=== PATIENT | female | born 1995 | race Caucasian/White ===

== ENCOUNTER 2024-09-27 09:09 | Outpatient (CLI) | payer BC, SELFPAY ==
[2024-09-28 17:51] LABS: HPV Source Cervix
[2024-10-01 13:11] LABS: Pap Test Digital Imaging Done
== END 2024-09-27 09:10 | disposition home or self-care (01) ==
PROVIDERS: Visit Provider Registered Nurse
DX: Z12.4 Encounter for screening for malignant neoplasm of cervix (principal); Z11.51 Encounter for screening for human papillomavirus (HPV)
CPT/HCPCS: 87624; 87625; 88141; 88142; 88175

== ENCOUNTER 2024-10-05 07:56 | Outpatient (CLI) | payer BC, SELFPAY ==
--- NOTE | 2024-10-05 08:15 | CRLHL7_ITS ---
For Patients: As a result of the Century Cures Act, medical imaging exams and procedure reports are released immediately into your electronic medical record. You may view this report before your referring provider. If you have questions, please contact your health care provider. LEFT BREAST ULTRASOUND CLINICAL HISTORY: LEFT breast lump. COMPARISON: None. TECHNIQUE: Real-time ultrasound imaging of LEFT breast with imaging documentation. Scanning was performed by both the technologist and the radiologist. FINDINGS: Targeted sonogram LEFT breast 12 o`clock performed in the area of concern. Normal dense fibroglandular tissue is present. No fibrocystic change. No suspicious mass. IMPRESSION: No suspicious findings. No evidence of malignancy. RECOMMENDATIONS: Clinical follow-up. Results and recommendations were discussed with the patient at the time of the exam. A lay language report of this examination will be provided to the patient. BI-RADS Category 2: Benign Dictated by Carter Guerra MD @ 10/05/2024 8:48:02 AM jj/Dictated by: Carter Guerra MD @ 10/05/2024 8:48:00 AM (Electronically Signed)
== END 2024-10-05 07:57 | disposition home or self-care (01) ==
LOC: US 07:56
PROVIDERS: Visit Provider Registered Nurse
DX: N63.20 Unspecified lump in the left breast, unspecified quadrant (principal)
CPT/HCPCS: 76642

== ENCOUNTER 2024-10-30 13:34 | Outpatient (CLI) | payer BC, SELFPAY ==
--- NOTE | 2024-10-30 14:00 | CRLHL7_ITS ---
For Patients: As a result of the Cures Act, medical imaging exams and procedure reports are released immediately into your electronic medical record. You may view this report before your referring provider. If you have questions, please contact your health care provider. OB ULTRASOUND INDICATION: Dating and viability. TECHNIQUE: Real time grayscale imaging of the fetus was performed. Transvaginal. Transvaginal imaging performed to better demonstrate the endometrium and ovaries. LMP: 09/07/2024. GOPAL by LMP: 06/14/2025. GA: 7 w, 4 d. Previous US: No. CRL: 0.9 cm. 6 w 6 d. GOPAL: 06/19/2025. FHR: 121 BPM. Gestational sac: 2.4 cm. Appears within normal limits. Yolk sac: 2.0 mm. Appears within normal limits. Right ovary: 2.7 x 2.2 x 2.9 cm. CL. Left ovary: 2.8 x 1.7 x 2.3 cm. IMPRESSION: 1. Single living intrauterine measures 6 weeks 6 days and sonographic due date 06/19/2025. 2. Corpus luteal cyst right ovary measures 2.3 x 1.8 x 2.4 cm. 3. Simple left paraovarian cyst measures 1.4 x 0.6 x 0.8 cm. Carter Guerra M.D. Diagnostic Radiologist [email or web address]/Dictated by: Carter Guerra MD @ 10/30/2024 2:37:00 PM (Electronically Signed)
== END 2024-10-30 13:35 | disposition home or self-care (01) ==
LOC: US 13:35
PROVIDERS: Visit Provider Physician Assistant
DX: O34.81 Maternal care for other abnormalities of pelvic organs, first trimester (principal); N83.11 Corpus luteum cyst of right ovary; Z3A.01 Less than 8 weeks gestation of pregnancy
CPT/HCPCS: 76817; 83021; 86703; 86706; 86803; 86850; 86900; 86901; 87086; 87340; 87491; 87591

== ENCOUNTER 2024-10-30 14:47 | Outpatient (CLI) | payer BC, SELFPAY ==
[2024-10-30 23:04] LABS: Chlamydia DNA Amplified* NOT DETECTED (No Detected); GC DNA Amplified* NOT DETECTED (No Detected)
== END 2024-10-30 14:48 | disposition home or self-care (01) ==
PROVIDERS: Visit Provider Physician Assistant
DX: Z34.91 Encounter for supervision of normal pregnancy, unspecified, first trimester (principal)
CPT/HCPCS: 83020; 83021; 85660; 86592; 86703; 86704; 86706; 86762; 86787; 86803; 86850; 86900; 86901; 87086; 87340; 87491; 87591

== ENCOUNTER 2024-12-08 13:55 | Observation (INO) | payer BC, SELFPAY ==
--- OUTSIDE RECORDS SUMMARY | 2024-11-27 04:50 | XMS_ITS | Continuity of Care Document ---
Author Organization [facility] Address [address] [address] [place] [address] Phone Care Team Providers Care Termite Control Representative Name Role Phone Lozano DO, Jayme Unavailable Unavailable Allergies, Adverse Reactions, Alerts Substance Reaction Status Criticality No Known Allergies Active No Inform ation Medications Medication Instructions Dosage Effective Dates (start - stop) Status Comments VITAMINS (unknown strength) take 1 tablet by oral route every day Not Available - Active amitriptyline 25 mg tablet take 1 to 2 tablet by oral route every day at bedtime for cyclic vomiting syndrome - Active promethazine 6.25 mg/5 mL oral syrup take 10 to 20 ml four times daily as needed for nausea/vomiting - Active PEPCID (unknown strength) take 1 tablet by oral route every day Not Available - Active cyproheptadine 4 mg tablet take 1 tablet by oral route 2 times every day 4 MG - Active triamcinolone acetonide 0.1 % topical cream apply by topical route 2- 3 times every day a thin layer to the affected area(s) Not Available - Active amitriptyline 25 mg tablet take 1 to 2 tablet by oral route every day at bedtime for cyclic vomiting syndrome - No Longer Active amitriptyline 25 mg tablet take 1 tablet by oral route every day at bedtime 25 MG - No Longer Active metoclopramide 5 mg/5 mL oral solution take 10 milliliter by oral route 4 times every day 30 minutes before meals and at bedtime 10 MG - No Longer Active Altavera (28) 0.15 mg-0.03 mg tablet take 1 tablet by oral route every day 1.00 tablet - No Longer Active Procedures Procedure Date Established Level 4 Moderate Offic/outpt E&m Estab Low-mod Established Level 5 Established Level 3 Established Level 3 Established Level 3 Established Level 3 Ugi Endo; W/us Guid Asp/bx Ugi Endo; W/bx 1/mx Established Level 4 Offic/outpt E&m Estab Mod-hi 2 Ugi Endo; W/bx 1/mx Level Iv-surg Path Gross/micro Routine Serum Collection Ag-immunoassay; Hep B Surface Gg; Iga, Igd, Igg, Igm, Ea Prothrombin Time Hepatitis A Antibody; Igg & Ig Hep B Core Antibody Hepatitis C Antibody; Ferritin Hepatic Function Panel Iron Iron Binding Capacity Offic/outpt E&m Estab Mod-hi 2 Routine Serum Collection Hepatic Function Panel Lipase Offic Cons New/estab Mod Advance Directives Directive Yes / No Effective Date File Name No Information Encounters Encounter Description Practice Location Reason(s) For Visit Diagnoses Date Provider Providers Copied on Encounter Established Level 4 Moderate [facility] [address] [address], [place], [id number], [place] tel:[phone] [facility] GI Symptoms or Concerns (chief complaint) Cyclic vomiting [id number] weeks gestation of 5 Blake Uribe. [address] [facility], [address], [id number], [place]. tel:[phone] Referring Provider: Referral Self, USE FOR SELF REFERRALS. [facility], [address] [address], [place], [id number], [place] tel:[phone] [facility] No Information 4 Ursula Morin. [address] [facility] [address], [place], [id number], [place]. tel:[phone] Offic/outpt E&m Estab Low-mod [facility], [address] [address], [place], [id number], [place] tel:[phone] [facility] GI Symptoms or Concerns (chief complaint) Cyclic vomiting syndromeNause a and vomiting, intractabilit y of vomiting not specified, unspecified vomiting type 3 Ursula Morin. [address] [facility] [address], [place], [id number], [place]. tel:[phone] Referring Provider: Referral Self, USE FOR SELF REFERRALS. [facility], [address] [address], [place], [id number], [place] tel:[phone] [facility] Cyclic vomiting syndrome 0 3 Luis Felipe Valadez. [address] [place], [place], [id number], [place]. tel:[phone] Referring Provider: Listed Not. Established Level 5 [facility], [address] [address], [place], [id number], [place] tel:[phone] [facility] GI Symptoms or Concerns (chief complaint) Cyclic vomiting syndrome 3 Luis Felipe Valadez. [address] [place], [place], [id number], [place]. tel:[phone] Referring Provider: Jodie Guzman CNP M, [address] [place], [address]. tel:[phone] [facility], [address] [address], [place], [place], [id number], [place] tel:[phone] [facility] GI Symptoms or Concerns (chief complaint) No Information 3 Luis Felipe Valadez. [address] [place], [place], [id number], [place]. tel:[phone] [facility], [address] [address], [place], [id number], [place] tel:[phone] [facility] No Information 3 Andreia Valle. [address], [id number], [place]. tel:[phone] Established Level 3 [facility], [address] [address], [place], [id number], [place] tel:[phone] [facility] GI Symptoms or Concerns (chief complaint) Cyclic vomiting syndrome 3 Andreia Valle. [address], [id number], [place]. tel:[phone] Referring Provider: Referral Self, USE FOR SELF REFERRALS. [facility], [address] [address], [place], [id number], [place] tel:[phone] [facility] No Information 3 Andreia Valle. [address] [facility] [address], [place], [id number], [place]. tel:[phone] Established Level 3 [facility], [address] [address], [place], [id number], [place] tel:[phone] [facility] GI Symptoms or Concerns (chief complaint) Cyclic vomiting syndrome 2 Macario Bonilla. [address] [facility], [facility] [address], [place], [id number], [place]. tel:[phone] Referring Provider: Benitez ORTEGA, [address] [place] [address], [address]. tel:[phone] [facility], [address] [address], [place], [id number], [place] tel:[phone] [facility] No Information 2 Edenilson Rob. [address] [facility], [facility] [address], [place], [id number], [place]. [phone] Established Level 3 [facility], [address] [address], [place], [id number], [place] tel:[phone] [facility] GI Symptoms or Concerns (chief complaint) Cyclic vomiting syndromeNause a and vomiting, intractabilit y of vomiting not specified, unspecified vomiting typeAbnormal LFTsHistory of migraine headaches No Information Referring Provider: Referral Self, USE FOR SELF REFERRALS. [facility], [address] [address], [place], [id number], [place] tel:[phone] No Information No Information Established Level 3 [facility], [address] [address], [place], [id number], [place] tel:[phone] [facility] GI Symptoms or Concerns (chief complaint) Cyclic vomiting syndromeNause a and vomiting, intractabilit y of vomiting not specified, unspecified vomiting typeAbnormal LFTsAbnormal weight lossHistory of migraine headaches No Information Referring Provider: Referral Self, USE FOR SELF REFERRALS. [facility], [address] [address], [place], [id number], [place] tel:[phone] [facility] Nonspecific reactive hepatitis Andrew Seals. [address] [facility] [address], [place], [id number], [place]. tel:[phone] [facility], [address] [address], [place], [id number], [place] tel:[phone] [facility] No Information 1 Dominik De Luna. [address] [place] [address], [address], [id number], [place]. tel:[phone] Referring Provider: Calixto Brambila, [address] [place] [address], [address]. [phone] [facility], [address] [address], [place], [id number], [place] tel:[phone] [facility] Abnormal LFTsNausea and vomiting, intractabilit y of vomiting not specified, unspecified vomiting type 1 Andrew Seals. [address] [place] [address], [id number], [place]. tel:[phone] Established Level 4 [facility], [address] [address], [place], [id number], [place] tel:[phone] [facility] GI Symptoms or Concerns (chief complaint) Abnormal LFTsNausea and vomiting, intractabilit y of vomiting not specified, unspecified vomiting typeAbnormal weight loss 0 1 No Information Referring Provider: Referral Self, USE FOR SELF REFERRALS. [facility], [address] [address], [place], [id number], [place] tel:[phone] [facility] Abnormal LFTsNausea and vomiting, intractabilit y of vomiting not specified, unspecified vomiting type 1 Andrew Seals. [address] [place] [address], [id number], [place]. tel:[phone] Offic/outpt E&m Estab Mod-hi 2 [facility], [address] [address], [place], [id number], [place] tel:[phone] [facility] GI Symptoms or Concerns (chief complaint) Nausea with vomiting, unspecifiedAb normal weight loss 0 1 Ortega Rosen. [address] [place] [address], [id number], [place]. tel:[phone] Referring Provider: Referral Self, USE FOR SELF REFERRALS. [facility], [address] [address], [place], [id number], [place] tel:[phone] [facility] Nausea with vomiting, unspecifiedWe ight lossAbnormal weight lossDisease of stomach and duodenum, unspecifiedNa usea with vomiting, unspecifiedAb normal weight loss 1 Yoseph Harris. [address] [place] [address], [id number], [place]. tel:[phone] Referring Provider: Referral Self, USE FOR SELF REFERRALS. [facility], [address] [address], [place], [id number], [place] tel:[phone] [facility] Nausea and vomiting, intractabilit y of vomiting not specified, unspecified vomiting type 1 Andrew Seals. [address] [place] [address], [id number], [place]. tel:[phone] [facility], [address] [address], [place], [id number], [place] tel:[phone] [facility] Abnormal results of liver function studies 1 Andrew Seals. [address] [place] [address], [id number], [place]. tel:[phone] Referring Provider: Referral Self, USE FOR SELF REFERRALS. [facility] [place], [address] [address], [place], [id number], [place] tel:[phone] [facility] Abnormal LFTsElevated lipase 1 Andrew Seals. [address] [place] [address], [id number], [place]. tel:[phone] Offic/outpt E&m Estab Mod-hi 2 [facility], [address] [address], [place], [id number], [place] tel:[phone] [facility] GI Symptoms or Concerns (chief complaint) Nausea and vomiting, intractabilit y of vomiting not specified, unspecified vomiting typeLeft upper quadrant painDiarrhea, unspecified typeAbnormal LFTs 1 Andrew Seals. [address] [place] [address], [address], [id number], [place]. tel:[phone] Referring Provider: Referral Self, USE FOR SELF REFERRALS. [facility], [address] [address], [place], [place], [id number], [place] tel:[phone] [facility] No Information 1 Yuri Mauricio. [address] [facility], [facility] [address], [place], [place], [id number], [place]. tel:[phone] Offic Cons New/estab Mod [facility], [address] [address], [place], [place], [id number], [place] tel:[phone] [facility] GI Symptoms or Concerns (chief complaint) Non-intractab le cyclical vomiting with nausea 8 Macario Bonilla. [address] [place] [address], [address], [id number], [place]. tel:[phone] Referring Provider: Benitez ORTEGA, [address] [place] [address], [address]. tel:[phone] Family History Family Member Type Diagnosis Age At Onset Father Problem (finding) Alive and well Mother Problem (finding) Alive and well Sister Problem (finding) Alive and well Immunizations Vaccine Date Status Comments tetanus toxoid, reduced diphtheria toxoid, and acellular pertussis vaccine, adsorbed administered Note: [facility] b i-directional interface ; Source: Other Registry SARS-COV-2 (COVID-19) vaccin e, mRNA, spike protein, LNP, preservative free, 30 mcg/0.3mL dose administered Note: [facility] bi-direct ional interface ; Source: Other Registry SARS-COV-2 (COVID-19) vaccin e, mRNA, spike protein, LNP, preservative free, 30 mcg/0.3mL dose administered Note: [facility] bi-direct ional interface ; Source: Other Registry meningococcal polysaccharide (groups A, C, Y and W-135) diphtheria toxoid conjugate vaccine (MCV4P) administered Note: [facility] bi-direct ional interface ; Source: Other Registry human papilloma virus vaccin e, quadrivalent administered Note: [facility] bi-direct ional interface ; Source: Other Registry human papilloma virus vaccin e, quadrivalent administered Note: [facility] bi-direct ional interface ; Source: Other Registry tetanus toxoid, reduced diphtheria toxoid, and acellular pertussis vaccine, adsorbed administered Note: [facility] b i-directional interface ; Source: Other Registry human papilloma virus vaccin e, quadrivalent administered Note: [facility] bi-direct ional interface ; Source: Other Registry Havrix pediatric administered Note: [facility] bi-directional interface ; Source: Other Registry Influenza, seasonal, injectable administe red Note: [facility] bi- directional interface ; Source: Other Registry varicella virus vaccine administered Note : [facility] bi-directional interface ; Source: Other Registry Influenza, seasonal, injectable administe red Note: [facility] bi- directional interface ; Source: Other Registry Influenza, seasonal, injectable administe red Note: [facility] bi- directional interface ; Source: Other Registry poliovirus vaccine, inactivated administe red Note: [facility] bi- directional interface ; Source: Other Registry measles, mumps and rubella v irus vaccine administered Note: [facility] bi-direct ional interface ; Source: Other Registry diphtheria, tetanus toxoids and acellular pertussis vaccine administered Note: [facility] b i-directional interface ; Source: Other Registry Pneumovax administered Note: [facility] bi-d irectional interface ; Source: Other Registry measles, mumps and rubella v irus vaccine administered Note: [facility] bi-direct ional interface ; Source: Other Registry Haemophilus influenzae type b vaccine, PRP-T conjugate administered Note: [facility] bi-d irectional interface ; Source: Other Registry diphtheria, tetanus toxoids and acellular pertussis vaccine administered Note: [facility] b i-directional interface ; Source: Other Registry varicella virus vaccine administered Note : [facility] bi-directional interface ; Source: Other Registry poliovirus vaccine, inactivated administe red Note: [facility] bi- directional interface ; Source: Other Registry Haemophilus influenzae type b vaccine, PRP-T conjugate administered Note: [facility] bi-d irectional interface ; Source: Other Registry hepatitis B vaccine, unspeci fied formulation administered Note: [facility] bi-direct ional interface ; Source: Other Registry diphtheria, tetanus toxoids and acellular pertussis vaccine administered Note: [facility] b i-directional interface ; Source: Other Registry poliovirus vaccine, inactivated administe red Note: [facility] bi- directional interface ; Source: Other Registry Haemophilus influenzae type b vaccine, PRP-T conjugate administered Note: [facility] bi-d irectional interface ; Source: Other Registry diphtheria, tetanus toxoids and acellular pertussis vaccine administered Note: [facility] b i-directional interface ; Source: Other Registry poliovirus vaccine, inactivated administe red Note: [facility] bi- directional interface ; Source: Other Registry Haemophilus influenzae type b vaccine, PRP-T conjugate administered Note: [facility] bi-d irectional interface ; Source: Other Registry hepatitis B vaccine, unspeci fied formulation administered Note: [facility] bi-direct ional interface ; Source: Other Registry diphtheria, tetanus toxoids and acellular pertussis vaccine administered Note: [facility] b i-directional interface ; Source: Other Registry Energix Pediatric administered Note: [facility] bi-directional interface ; Source: Other Registry Payers Payer name Insurance type Covered green party ID Authoriza tion(s) [facility] [id number] Social History Type Description Quantity Date Captured Comments Alcohol Use Details Unknown Caffeine Use Details Unknown Tobacco Use Status No Information Smoking Status undefined Sex Female Vital Signs Date / Time: Height Weight BMI Pulse Rate Blood Pressure Temperature Respiratory Rate Body Surface Area Head Circumference Head Circ. Percentile Wt./David. Percentile BMI percentile Pulse Ox Inhaled Ox 9:51 AM 61.00 in 82.100 kg (181.00 lbs) 34.2 0 kg/m marcial (2) Chief Complaint And Reason For Visit From encounter dated '11/27/2024 09:50'. GI Symptoms or Concerns (chief complaint). Description: This was a virtual health appointment whichthe patient agreed to prior to initiation of discussion. Patient was present by herself during the appointment. Total time saw the patient including chart review, discussion, coordination of care was16 minutes.This is a pleasant 29-year-old female who is an established patient returning for follow-up of cyclic vomiting syndrome and . Patient was last seen in January 2023. She has done quite well since that appointment has been maintained on amitriptyline 25 mg once daily to help manage her cyclic vomiting syndrome. She reports with this medicine she does much better than she does without it. She still may experience an episode once every couple years where she will have profound nausea and vomiting and has rather violent symptoms that can last 2 weeks up to 2 months. During that time she can have severe dehydration, mall nutrition, and weight loss. She is now reporting that she is at 11 weeks gestation. She has had some morning nausea with vomiting but reports that this is very different than her cyclic vomiting syndrome symptoms. 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 Otherwise normal exam. 06/13/2020 MRI abdomen with MRCP: Normal study. 06/20/2020 EGD: Normal esophagus, gastritis and normal duodenum. Unremarkable duodenal biopsies. Gastric biopsies showed reactive gastropathy, negative H pylori. 06/24/2020 CT head without contrast: Unremarkable. 07/03/2020 Gastric emptying scan: Abnormal delayed gastric emptying within the 1st 3 hours however at 4 hours normal gastric emptying. 07/16/2020 Upper EUS: Mild gastritis, unremarkable post cholecystectomy upper EUS exam otherwise. Liver biopsy performed given elevated LFTs. Liver biopsy path showed nonspecific reactive hepatitis and mild macro vesicular steatosis. She has been seen at [facility] previously. Reason For Referral Reason For Referral No Information Plan Of Treatment Date Type Action Status Referral Ordered: CMP Appointment date/timeframe: 12/18/2022 ordered Referral Ordered: CBC, Whole Blood Appointment date/timeframe: 12/18/2022 ordered Referral Ordered: Lipase Appointment date/timeframe: 12/18/2022 ordered Referral Ordered: EUS Appointment date/timeframe: 07/16/2020 ordered Referral Ordered: ERCP Appointment date/timeframe: 07/16/2020 ordered Referral Ordered: MRCP Biliary/Pancreatic Ducts WITHOUT And WITH Contrast Appointment date/timeframe: 06/24/2020 ordered Referral Ordered: Ultrasound Abdomen Appointment date/timeframe: 06/20/2020 ordered Referral Ordered: Gastric Emptying Study (4 Hours) Appointment date/timeframe: -today ordered Future Order: Lab Order Antimito chondrial Ab (AMA), Qn ([id number]), Body Site: Right Antecubital Fossa, Appointment on: Ordered History Of Present Illness Encounter Date Complaint History Of Prese nt Illness GI Symptoms or Concerns This was a virtual health appointment which the patient agreed to prior to initiation of discussion. Patient was present by herself during the appointment. Total time saw the patient including chart review, discussion, coordination of care was 16 minutes.This is a pleasant 29-year-old female who is an established patient returning for follow-up of cyclic vomiting syndrome and . Patient was last seen in January 2023. She has done quite well since that appointment has been maintained on amitriptyline 25 mg once daily to help manage her cyclic vomiting syndrome. She reports with this medicine she does much better than she does without it. She still may experience an episode once every couple years where she will have profound nausea and vomiting and has rather violent symptoms that can last 2 weeks up to 2 months. During that time she can have severe dehydration, mall nutrition, and weight loss. She is now reporting that she is at 11 weeks gestation. She has had some morning nausea with vomiting but reports that this is very different than her cyclic vomiting syndrome symptoms. 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 Otherwise normal exam. 06/13/2020 MRI abdomen with MRCP: Normal study. 06/20/2020 EGD: Normal esophagus, gastritis and normal duodenum. Unremarkable duodenal biopsies. Gastric biopsies showed reactive gastropathy, negative H pylori. 06/24/2020 CT head without contrast: Unremarkable. 07/03/2020 Gastric emptying scan: Abnormal delayed gastric emptying within the 1st 3 hours however at 4 hours normal gastric emptying. 07/16/2020 Upper EUS: Mild gastritis, unremarkable post cholecystectomy upper EUS exam otherwise. Liver biopsy performed given elevated LFTs. Liver biopsy path showed nonspecific reactive hepatitis and mild macrovesicular steatosis. She has been seen at [facility] previously. GI Symptoms or Concerns Patient is a 27-year-old woman who is present today with her to discuss cyclic vomiting syndrome. She had been on nortriptyline with good management of symptoms since April of 2020 after 8 weeks of symptoms.She got this fall and was returning home by car November of 2022 and developed nausea/vomiting in the car having emesis every 20 minutes for 9 hours. 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 During the episode, also with abdominal tightness, squeezing sensation, feeling like someone punched me in the gut and inability to eat. This episode ,she was able to keep fluids down so she did not need IVF. Weight down 10 lbs. She was switched from 10 mg of Nortriptyline to 25 mg of amitriptyline, metoclopramide liquid 10 mg four times daily and zofran was helpful. She has weaned off the metoclopramide and no longer needing the zofran. She reports her first episode out of HS then 2 years later when she started her new job. She has lost up to 40 lbs with and episode at one time weighing 90 lbs. She really does not have symptoms in between episodes. She inquires about the safety of therapy if she was to get . She has tried imitrex which made things worse. She has been on cyproheptadine in the past. GES 12/17 showed a four hour retention of 23%, US normal.She does not have constipation. She denies smoking. No marijuana. No alcohol. Her maternal grandparents had some type of GI cancers however she could not provide further details. She has prior history of elevated LFTs and had a liver biopsy in June 2020 which showed reactive hepatitis. Prior extensive GI workup (all reports reviewed by me today): 06/07/2020 Complete abdominal ultrasound: Non enlarged liver but mildly edematous. Otherwise normal exam. 06/13/2020 MRI abdomen with MRCP: Normal study. 06/20/2020 EGD: Normal esophagus, gastritis and normal duodenum. Unremarkable duodenal biopsies. Gastric biopsies showed reactive gastropathy, negative H pylori. 06/24/2020 CT head without contrast: Unremarkable. 07/03/2020 Gastric emptying scan: Abnormal delayed gastric emptying within the 1st 3 hours however at 4 hours normal gastric emptying. 07/16/2020 Upper EUS: Mild gastritis, unremarkable post cholecystectomy upper EUS exam otherwise. Liver biopsy performed given elevated LFTs. Liver biopsy path showed nonspecific reactive hepatitis and mild macrovesicular steatosis. She has been seen at [facility] previously. GI Symptoms or Concerns Patient is a 27-year-old woman who was seen via virtual visit today due to concerns about cyclical vomiting syndrome. She was alone at home and consented to a virtual visit. She was previously seen via virtual visit on 04/07/2022. Please refer to prior GI clinic note for details. Patient has had extensive GI evaluation previously and was diagnosed with cyclical vomiting syndrome. She used to take nortriptyline 10 mg q.h.s. and cyproheptadine 4 mg once daily however after last visit, cyproheptadine discontinuation was recommended. She was recommended to wean off nortriptyline if she had good symptom control. Today she reports that she started having symptoms of recurrent nausea and vomiting about 2 weeks ago. She was driving back with her from [place] and started having these symptoms. Since then she has lost 6 pounds body weight. She is unable to keep anything down. She is using some protein shakes. She was previously on nortriptyline which was switched to amitriptyline 25 mg q.h.s. last Wednesday by her PCP. Her last symptom exacerbation was about 2 years ago. She has had 4-5 episodes since graduating from high school. Each time, her symptoms last about 9-10 weeks per patient. She reported having up to 4 vomiting episodes daily currently. Her symptoms were worse in the earlier period. She was also experiencing constant, punching type generalized abdominal pain however it has improved per patient. Denies any fever or chills. She reported being constipated last week for 1 week straight and then had some loose bowel movements. In the last week she has that only 1 bowel movement. She reported having 1 bowel movement daily usually when she is asymptomatic. Stool times to be loose per patient. No melena, hematochezia or hematemesis. Patient reports that she has been to ER twice with her current symptoms and was managed conservatively. She is currently taking Reglan 10 mg 4 times a day, Zofran 2 to 3 times a day, cyproheptadine twice daily and famotidine in the morning daily. She denies smoking. No marijuana. No alcohol. Her maternal grandparents had some type of GI cancers however she could not provide further details. She has prior history of elevated LFTs and had a liver biopsy in June 2020 which showed reactive hepatitis. Prior extensive GI workup (all reports reviewed by me today): 06/07/2020 Complete abdominal ultrasound: Non enlarged liver but mildly edematous. Otherwise normal exam. 06/13/2020 MRI abdomen with MRCP: Normal study. 06/20/2020 EGD: Normal esophagus, gastritis and normal duodenum. Unremarkable duodenal biopsies. Gastric biopsies showed reactive gastropathy, negative H pylori. 06/24/2020 CT head without contrast: Unremarkable. 07/03/2020 Gastric emptying scan: Abnormal delayed gastric emptying within the 1st 3 hours however at 4 hours normal gastric emptying. 07/16/2020 Upper EUS: Mild gastritis, unremarkable post cholecystectomy upper EUS exam otherwise. Liver biopsy performed given elevated LFTs. Liver biopsy path showed nonspecific reactive hepatitis and mild macrovesicular steatosis. She has been seen at [facility] previously. GI Symptoms or Concerns GI Symptoms or Concerns Ciro conteh is a 26-year-old female who is seen for a virtual visit today to follow up on cyclical vomiting syndrome.The patient was last seen in clinic 1 year ago for cyclical vomiting syndrome at which time her symptoms were well controlled on nortriptyline 10 mg before bed and cyproheptadine 4 mg once per day. She had undergone an extensive evaluation for her nausea and vomiting in 2020. This included upper endoscopy which was unremarkable outside of gastric biopsies showing reactive gastropathy. She also had a negative CT scan of the head and abdomen. Gastric emptying study was normal with 4% retention at 4 hours.The patient states that looking back on her symptoms, she believes that it was driven by stress that she was having in 2020. Over the past year, she has essentially been asymptomatic with her current medication regimen. She also went through a stressful period as she planned her wedding and did not have any symptom exacerbation. She notes that there hav GI Symptoms or Concerns Ms. Josseline dunlap is a 25-year-old female who presents to clinic for followup regarding refractory nausea, vomiting, and abdominal pain. The visit takes place via a virtual visit. The patient consents to the visit.The patient was last seen by Dr. Bonilla on October 08, 2020.The patient has a history of seeing multiple [facility] providers starting in 2017. Evaluation has included negative upper endoscopy with gastric biopsies demonstrating reactive gastropathy, negative for H. pylori. Duodenal biopsies were normal. CT scan of the head in June [address] scan of the abdomen in May 2020 and MRI of the pancreas and liver also in May 2020 were normal. Ultrasound of the abdomen on June 07, 2020 was normal. Gastric emptying study was normal with 4% retention at 4 hours.The patient underwent an endoscopic ultrasound and liver biopsy in June 2020 for elevated liver enzymes. Liver biopsy demonstrated reactive hepatitis. Previous hepatitis markers were negative. Liver GI Symptoms or Concerns This is a telemedicine virtual consultative visit, which the patient consented to. Total consultative time is 25 minutes.Ciro Dominguez is a very pleasant 25-year-old female with a history of refractory nausea, vomiting, and abdominal pain. Her symptoms have been present for approximately 6 months.She also had a history of 2 similar episodes in March 2015 and 2017 with refractory nausea and vomiting lasting for 4-6 weeks. She is status post cholecystectomy in March 2018 for possible biliary dyskinesia (low gallbladder ejection fraction on hepatobiliary scan).Prior to being seen in July 2020, the patient has seen multiple [facility] providers. Evaluation included negative EGD (gastric biopsies demonstrating reactive gastropathy, negative for HP). Duodenal biopsies were normal. CT scan of the head (June 24, 2020) was negative. CT scan of the abdomen (May 2020) and MRI of the pancreas and liver (May 2020) were normal. Ultrasound of the abdomen on June 07, 2020, w GI Symptoms or Concerns This is a telemedicine virtual consultative visit, which the patient consented to. Total consultative time is 40 minutes.Ciro Dominguez is a 25-year-old female who has been followed by multiple [facility] providers, currently Dr. Bozena Morales. She has a history of refractory nausea, vomiting, and upper abdominal pain. Her symptoms began in early May 2020.Significant past medical history is that she has had 2 similar episodes in 2015 and 2017 with refractory nausea and vomiting lasting for 4 to 6 weeks. She is status post cholecystectomy in March 2018 for possible biliary dyskinesia (low gallbladder ejection fraction on hepatobiliary scan).Extensive recent evaluation has included negative esophagogastroduodenoscopy (gastric biopsies demonstrating reactive gastropathy, negative for HP). Duodenal biopsies being normal. CT scan of the head (June 24, 2020) was negative. CT scan of the abdomen (May 2020) and MRI of the pancreas and liver (May GI Symptoms or Concerns This pat ient is seen for a video visit. Prior to conducting the visit, she agreed to have it done online. No other person was present.This patient has had previous visits and evaluation in our office for nausea, vomiting, abdominal pain and elevated liver tests. Her symptoms started in earlier May/end of April that when she thought it was related to some bad chicken she had from a restaurant. She had intermittent nausea and vomiting. This became so severe that she went to the ER. Her liver tests were mildly elevated with ALT of 70. She was discharged with antiemetics. She later returned to the ER with continuing symptoms and was given the diagnosis of pancreatitis. The lipase was only mildly elevated at 198.6. CT scan did not have any findings of a pancreatitis. Her liver tests at that time were fairly stable with ALT in the 70 to 97 range.The patient had a consultation with Dr. Bozena Morales. Lab work was done to investigate for possible liver diseases. Serologic, m GI Symptoms or Concerns Ciro goins s a 24 year old female who presents today with her boyfriend for follow up on nausea with vomiting and abdominal pain.In review, she was last seen by Dr. Morales 06/06/20 after she was hospitalized from 06/03-06/05/20 for these symptoms, which were presumed to be f rom acute idiopathic pancreatitis. Following this visit her LFT's were rechecked and notable for an ALT of 131, AST 45, Direct Bilirubin 0.3, and Lipase 516. She had a normal Ceruloplasmin, alpha 1 anti trypsin, Anti nuclear antibody, and Smooth Muscle Antibody. Normal INR and Prothrombin. She had a normal Serum Ferritin, with slightly low TIBC and UIBC. Hepatitis B Core antibody, Hepatitis B Surface Ag, Hepatitis Surface Ab, and Hepatitis HCV were non reactive. She had a positive Hepatitis A Total Antibody with Negative Hepatitis A IgM antibody. A right upper quadrant ultrasound ordered, which showed a mildly edematous liver, concerning for hepatitis. An abdominal MRI with non contrast MRCP was subsequently ordered which was demonstrated no evidence of hepatic disease, no pancreatic or peripancreatic inflammation, no abnormal biliary or pancreatic ductal dilation. An EGD was then done 06/20/20, that found linear gastric erythema & erosions, with gastric biopsies demonstrating reactive gastropathy, negative for H. pylori. Duodenal biopsies negative. Presently, she continues to have nausea with vomiting and abdominal pain. Her symptoms has worsened since she was last seen as she was previously able to keep down applesauce and sherbet but she is no longer able to keep anything but liquids down. She is vomiting 1-2 times a day. She will vomit when taking pills or attempting to eat something, but the vomiting occurs outside of eating as well and almost always occurs upon waking. She has also been waking up during the night to vomit. She is throwing up yellow bile colored liquid. She states she has been drinking about 1L of fluid a day. She has lost 10lb since 06/06/20. She is not able to keep down any oral medications, and thus has not been using her pantoprazole or promethazine. She used all of the disintegrating ondansetron, but did not feel it made a difference. She tried the promethazine rectal suppository once but it was expelled. She has abdominal pain that is located primarily in the upper abdomen. It is constant throughout the day, and is described as a pressure like pain. It is unrelieved by vomiting. She states she also has a pressure like pain in her sternal area. She has not had a bowel movement since she was hospitalized 3 weeks ago. She denies odynophagia, hematemesis, dry mouth, coffee ground emesis, diarrhea, jaundice, or edema. 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 GI Symptoms or Concerns Shey barnard is a 24-year-old female seen for evaluation of about a 2-week history of nausea, vomiting with some left upper quadrant abdominal pain and diarrhea.She was previously seen by [facility] in 2018 for intermittent nausea, vomiting. This was thought to be a post viral functional nausea, vomiting. She tells me she ultimately underwent a cholecystectomy in 2018 for low gallbladder EF and had not had any symptoms since that time apart from related to her menstrual cycle. For the last 2 weeks after eating an impossible meatless taco that she thought contained chicken, she has been experiencing intermittent nausea and vomiting. This became so severe that on June 01, she was seen in the ER, at that time with 5 days of intermittent vomiting. She underwent evaluation with laboratory testing, a CT of abdomen and pelvis, and an abdominal x-ray. This was notable for normal BMP, normal CBC, normal lipase, negative tox screen. LFTs revealed a mild elevation in ALT to 70 with upper GI Symptoms or Concerns Ciro petersen is a 22-year-old female who presents at the request of her primary care provider, Benitez Glover for evaluation regarding intermittent episodes of intractable nausea and vomiting.The patient had a severe illness including nausea, vomiting, and transaminitis in 2016. She was ultimately diagnosed with an E. coli infection while at [place]. She did undergo an upper endoscopy at that time, which was reportedly normal. I do not have copies of this report and will attempt to obtain them. The patient reports that she did ultimately undergo a liver biopsy, which showed damage related to the virus. Her liver tests did ultimately resolve. She also was told that she may have a lasting effects due to the severity of her illness and her father believes that a gastroparesis was mentioned.Since that episode in 2015, she has had intermittent times of nausea and vomiting approximately every 3 months. She reports that they typically last for 2 to 3 days and she is able to Functional Status Date Functional Assessmen t No Information Instructions Date Instruction Additional Infor anisha Obtain results of CB C, CMP from PCP's office Check lipase Obtain abdominal ultrasound Repeat gastric emptying scan We discussed about trying Diphenhydramine once or twice daily and she mentioned that she will obtain it [id number] and did not want me to put in a prescription. If no improvement, we can consider promethazine suppository or oral tablets and can switch from famotidine to PPI. Hold Cyproheptadine for nowReturn to clinic in 1 month Related to Cyclic vomiting syndrome It was nice to meet you!Trial discontinuing the Cyproheptadine. Let me know if your symptoms return and we will resume at once per day. Continue Nortriptyline 10mg before bed each night. Prescription refilled. If symptoms continue to be well controlled, it would be reasonable to trial weaning off of the Nortriptyline prior to . Would reduce the dose to [id number] for a couple of weeks before discontinuing. Follow-up in clinic in 1 year or sooner if needed. Feel free to call or message me with any questions or concerns [phone]. Related to Cyclic vomiting syndrome Cyclic Vomiting Syndrome Related to Cyclic vomiting syndrome 1. Attempt to resche dule gastric emptying study as soon as possible. 2. If abnormal will discuss options to correct nutrition3. If normal, pursue evaluation of sphincter of Oddi dysfunction or liver biopsy Related to Nausea and vomiting, intractability of vomiting not specified, unspecified vomiting type 1. request records f rom 06/03-06/05 hospitalization2. check lfts, lipase3. ruq u/s4. continue protonix twice daily, zofran, promethazine supp as needed5. risk of neuro side effects/tardive dyskinesia from metoclopramide discussed - caution advised6. fluids as tolerated - gatorade, broth, thuy alexandre - crackers/toast7. if unable to keep anything down you may need to return to the ER for iv fluids and iv meds8. f/u in 2-3 weeks if symptoms have not improved Related to Abnormal LFTs Assessments Type Assessment Date assessment Cyclic vomiting syndrome 2024 assessment 11 weeks gestation of impression This is a pleasant [age]-year-old female with a working diagnosis of cyclic vomiting syndrome who is currently in 11 weeks gestation here for amitriptyline renewal. Today we discussed in detail amitriptyline and any concerns. It does cross the placenta but there is no concrete evidence to suggest that it interferes with development. Knowing that patient has profound symptoms when she has an episode of her cyclic vomiting syndrome which can last weeks to months with severe malnutrition and dehydration, both of which would be detrimental to the patient and her baby, we have decided to continue amitriptyline at its current dose and frequency. In our discussion we understand that both sides carry with at some potential risk but since amitriptyline has been working very well over the past few years felt this was the safer option. Plan otherwise as noted below. Patient Care Teams Name Effective Dates (start - stop) Status Members No Information
--- OUTSIDE RECORDS SUMMARY | 2024-11-27 04:50 | XMS_ITS | Continuity of Care Document ---
Author Organization [facility] Address [address] [address] [place] [address] Phone Care Team Providers Care Nickel Operator Name Role Phone Lozano DO, Jayme Unavailable [...] Moderate [facility] [address] [address], [place], [id number], [place] tel:[phone] [facility] GI Symptoms or Concerns (chief complaint) Cyclic vomiting [id number] weeks gestation of 5 Blake Uribe. [address] [facility], [address], [id number], [place]. tel:[phone] Referring Provider: Referral Self, USE FOR SELF REFERRALS. [facility], [address] [address], [place], [id number], [place] tel:[phone] [facility] No Information 4 Ursula Morin. [address] [facility] [address], [place], [id number], [place]. tel:[phone] Offic/outpt E&m Estab Low-mod [facility], [address] [address], [place], [id number], [place] tel:[phone] [facility] GI Symptoms or Concerns (chief complaint) Cyclic vomiting syndromeNause a and vomiting, intractabilit y of vomiting not specified, unspecified vomiting type 3 Ursula Morin. [address] [facility] [address], [place], [id number], [place]. tel:[phone] Referring Provider: Referral Self, USE FOR SELF REFERRALS. [facility], [address] [address], [place], [id number], [place] tel:[phone] [facility] Cyclic vomiting syndrome 0 3 Luis Felipe Valadez. [address] [place], [place], [id number], [place]. tel:[phone] Referring Provider: Listed Not. Established Level 5 [facility], [address] [address], [place], [id number], [place] tel:[phone] [facility] GI Symptoms or Concerns (chief complaint) Cyclic vomiting syndrome 3 Luis Felipe Valadez. [address] [place], [place], [id number], [place]. tel:[phone] Referring Provider: Jodie Guzman CNP M, [address] [place], [address]. tel:[phone] [facility], [address] [address], [place], [id number], [place] tel:[phone] [facility] GI Symptoms or Concerns (chief complaint) No Information 3 Luis Felipe Valadez. [address] [place], [place], [id number], [place]. tel:[phone] [facility], [address] [address], [place], [id number], [place] tel:[phone] [facility] No Information 3 Andreia Valle. [address], [id number], [place]. tel:[phone] Established Level 3 [facility], [address] [address], [place], [id number], [place] tel:[phone] [facility] GI Symptoms or Concerns (chief complaint) Cyclic vomiting syndrome 3 Andreia Valle. [address], [id number], [place]. tel:[phone] Referring Provider: Referral Self, USE FOR SELF REFERRALS. [facility], [address] [address], [place], [id number], [place] tel:[phone] [facility] No Information 3 Andreia Valle. [address] [facility] [address], [place], [id number], [place]. tel:[phone] Established Level 3 [facility], [address] [address], [place], [id number], [place] tel:[phone] [facility] GI Symptoms or Concerns (chief complaint) Cyclic vomiting syndrome 2 Macario Bonilla. [address] [facility], [facility] [address], [place], [id number], [place]. tel:[phone] Referring Provider: Benitez ORTEGA, [address] [place] [address], [address]. tel:[phone] [facility], [address] [address], [place], [id number], [place] tel:[phone] [facility] No Information 2 Edenilson Rob. [address] [facility], [facility] [address], [place], [id number], [place]. [phone] Established Level 3 [facility], [address] [address], [place], [id number], [place] tel:[phone] [facility] GI Symptoms or Concerns (chief complaint) Cyclic vomiting syndromeNause a and vomiting, intractabilit y of vomiting not specified, unspecified vomiting typeAbnormal LFTsHistory of migraine headaches No Information Referring Provider: Referral Self, USE FOR SELF REFERRALS. [facility], [address] [address], [place], [id number], [place] tel:[phone] No Information No Information Established Level 3 [facility], [address] [address], [place], [id number], [place] tel:[phone] [facility] GI Symptoms or Concerns (chief complaint) Cyclic vomiting syndromeNause a and vomiting, intractabilit y of vomiting not specified, unspecified vomiting typeAbnormal LFTsAbnormal weight lossHistory of migraine headaches No Information Referring Provider: Referral Self, USE FOR SELF REFERRALS. [facility], [address] [address], [place], [id number], [place] tel:[phone] [facility] Nonspecific reactive hepatitis Andrew Seals. [address] [facility] [address], [place], [id number], [place]. tel:[phone] [facility], [address] [address], [place], [id number], [place] tel:[phone] Sarmiento [facility] No Information 1 Dominik De Luna. [address] [place] [address], [address], [id number], [place]. tel:[phone] Referring Provider: Calixto Brambila, [address] [place] [address], [address]. [phone] [facility], [address] [address], [place], [id number], [place] tel:[phone] [facility] Abnormal LFTsNausea and vomiting, intractabilit y of vomiting not specified, unspecified vomiting type 1 Andrew Seals. [address] [place] [address], [id number], [place]. tel:[phone] Established Level 4 [facility], [address] [address], [place], [id number], [place] tel:[phone] [facility] GI Symptoms or Concerns (chief complaint) Abnormal LFTsNausea and vomiting, intractabilit y of vomiting not specified, unspecified vomiting typeAbnormal weight loss 0 1 No Information Referring Provider: Referral Self, USE FOR SELF REFERRALS. [facility], [address] [address], [place], [id number], [place] tel:[phone] [facility] Abnormal LFTsNausea and vomiting, intractabilit y of vomiting not specified, unspecified vomiting type 1 Andrew Seals. [address] [place] [address], [id number], [place]. tel:[phone] Offic/outpt E&m Estab Mod-hi 2 [facility], [address] [address], [place], [id number], [place] tel:[phone] [facility] GI Symptoms or Concerns (chief complaint) Nausea with vomiting, unspecifiedAb normal weight loss 0 1 Ortega Rosen. [address] [place] [address], [id number], [place]. tel:[phone] Referring Provider: Referral Self, USE FOR SELF REFERRALS. [facility], [address] [address], [place], [id number], [place] tel:[phone] [facility] Nausea with vomiting, unspecifiedWe ight lossAbnormal weight lossDisease of stomach and duodenum, unspecifiedNa usea with vomiting, unspecifiedAb normal weight loss 1 Yospeh Harris. [address] [place] [address], [id number], [place]. tel:[phone] Referring Provider: Referral Self, USE FOR SELF REFERRALS. [facility], [address] [address], [place], [id number], [place] tel:[phone] [facility] Nausea and vomiting, intractabilit y of vomiting not specified, unspecified vomiting type 1 Andrew Seals. [address] [place] [address], [id number], [place]. tel:[phone] [facility], [address] [address], [place], [id number], [place] tel:[phone] [facility] Abnormal results of liver function studies 1 Andrew Seals. [address] [place] [address], [id number], [place]. tel:[phone] Referring Provider: Referral Self, USE FOR SELF REFERRALS. [facility] [place], [address] [address], [place], [id number], [place] tel:[phone] [facility] Abnormal LFTsElevated lipase 1 Andrew Seals. [address] [place] [address], [id number], [place]. tel:[phone] Offic/outpt E&m Estab Mod-hi 2 [facility], [address] [address], [place], [id number], [place] tel:[phone] [facility] GI Symptoms or Concerns (chief complaint) Nausea and vomiting, intractabilit y of vomiting not specified, unspecified vomiting typeLeft upper quadrant painDiarrhea, unspecified typeAbnormal LFTs 1 Andrew Seals. [address] [place] [address], [address], [id number], [place]. tel:[phone] Referring Provider: Referral Self, USE FOR SELF REFERRALS. [facility], [address] [address], [place], [place], [id number], [place] tel:[phone] [facility] No Information 1 Yuri Mauricio. [address] [facility], [facility] [address], [place], [place], [id number], [place]. tel:[phone] Offic Cons New/estab Mod [facility], [address] [address], [place], [id number], [place] tel:[phone] [facility] GI Symptoms or Concerns (chief complaint) Non-intractab le cyclical vomiting with nausea 8 Macario Bonilla. [address] [place] [address], [address], [id number], [place]. tel:[phone] Referring Provider: Benitez ORTEGA, [address] [place] [address], [address]. tel:[phone] Family History Family Member Type Diagnosis Age [...] Registry Payers Payer name Insurance type Covered democrat ID Authoriza tion(s) [facility] [id number] Social History Type Description Quantity Date Captured [...] symptoms. She has been working with her ict help desk officer and had some concerns about amitriptyline and although per her discussion with her ict help desk officer there is no obvious well-documented concerns.Prior extensive [...] vesicular steatosis. She has been seen at [facility] previously. Reason For Referral Reason For Referral [...] Lab Order Antimito chondrial Ab (AMA), Qn ([id number]), Body Site: Right Antecubital Fossa, Appointment on: [...] symptoms. She has been working with her ict help desk officer and had some concerns about amitriptyline and although per her discussion with her ict help desk officer there is no obvious well-documented concerns.Prior extensive [...] macrovesicular steatosis. She has been seen at [facility] previously. GI Symptoms or Concerns Patient is [...] macrovesicular steatosis. She has been seen at [facility] previously. GI Symptoms or Concerns Patient is [...] She was driving back with her from [place] and started having these symptoms. Since then [...] macrovesicular steatosis. She has been seen at [facility] previously. GI Symptoms or Concerns GI Symptoms [...] female who has been followed by multiple [facility] providers, currently Dr. Bozena Morales. She [...] diarrhea, jaundice, or edema. 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 coli infection while at [place]. She did undergo an upper endoscopy at [...] she mentioned that she will obtain it [id number] and did not want me to put [...] to . Would reduce the dose to iitsq-vphir-ayc for a couple of weeks before discontinuing. Follow-up in clinic in 1 year or sooner if needed. Feel free to call or message me with any questions or concerns [phone]. Related to Cyclic vomiting syndrome Cyclic Vomiting [...]
--- OUTSIDE RECORDS SUMMARY | 2024-12-08 13:58 | XMS_ITS ---
Author Organization [facility] Source Produ ction (ClinicalSummary Clone) Address Unknown Care Team Providers Care Washer Repairman Name Role Phone Unavailable Primary Care Physician Unavailab le Results * [UNITY] CARRIER SCREEN Performed by: [employer] Component Value Range Date Sickle Cell Disease/Beta-Thalassemia/Hemo globinopathies carrier screen NEGATIVE 12/05/2024 01:38 am [facility] Alpha-Thalassemia carrier screen NEGATIVE 12/05/2024 01:38 am [facility] Cystic Fibrosis carrier screen NEGATIVE 12/05/2024 01:38 am [facility] Spinal Muscular Atrophy carrier screen NEGATIVE 2 SMN1 copies, SNP not present 12/05/2024 01:38 am [facility] For detailed report, see PDF See PDF 12/05/2024 01:38 am [facility] 12/05/2024 01:3 8 am [facility] Social History Observation Value Start Date End Date
--- OUTSIDE RECORDS SUMMARY | 2024-12-08 13:58 | XMS_ITS ---
Author Organization [facility] Produ ction (ClinicalSummary Clone) Address Unknown Care Team Providers Care Body Worker Name Role Phone Unavailable Primary Care Physician Unavailab le Results * [UNITY] ANEUPLOIDY NIPT Performed by: [employer] Component Value Range Date Fraction 6.2% 12/02/2024 07 :09 am [facility] Sex Chromosome Aneuploidy NOT DETECTED 07:09 am [facility] Monosomy X LOW RISK <1 in 10,000 2024 07:09 am UTC Trisomy 13 LOW RISK <1 in 10,000 2024 07:09 am [facility] Trisomy 18 LOW RISK <1 in 10,000 2024 07:09 am [facility] Trisomy 21 LOW RISK <1 in 10,000 2024 07:09 am [facility] Sex FEMALE 12/02/2024 07:0 9 am [facility] Gestation JEFFREY 12/03/19 07:09 am [facility] For detailed report, see PDF See PDF 12/02/2024 07:09 am UTC 12/02/2024 07:0 9 am [facility] Social History Observation Value Start Date End Date
[2024-12-08 14:21] VITALS: BP 144/81; PULSE 125; RESP 22; TEMP 36.6; O2SAT 98; BMI 31.5
--- NOTE | 2024-12-08 14:39 | ED.NAVMDI ---
HPI - Nausea/Vomiting/Diarrhea General Chief complaint: Nausea/Vomiting Stated complaint: 13 weeks / cant keep food or fluids down Time Seen by Provider: 12/08/24 14:17 History of Present Illness HPI Narrative: This 29-year-old female is 13 weeks . She comes in with her stating that she has persistent nausea and vomiting and has not been able to take much food or drink in the past couple days. She does arrive here with some tachycardia but has reassuring blood pressure. She states that she does have a history of cyclical vomiting syndrome and had some old Zofran that she took without much relief. She denies using marijuana. Related Data Home Medications ?Medication ?Instructions ?Recorded ?Confirmed amitriptyline 25 mg tablet 25 - 50 mg PO QPM vomiting 09/27/24 12/08/24 QFE-avzh-WL-omega 3 fatty no.1 27 cap PO DAILY 10/30/24 11/27/24 mg-1 mg-300 mg capsule Previous Rx's ?Medication ?Instructions ?Recorded metoclopramide HCl 10 mg tablet 10 mg PO Q6H PRN nausea and 12/08/24 (Reglan) vomiting #20 tabs ondansetron 4 mg disintegrating 4 mg PO Q6H #20 tabs 12/08/24 tablet Allergies Allergy/AdvReac Type Severity Reaction Status Date / Time No Known Drug Allergies Allergy Verified 12/08/24 14:19 Review of Systems Status of ROS: Reports: 10 or more systems reviewed and unremarkable except as noted in History and below Narrative: Constitutional: No fevers, no weight gain or loss. Eyes: No discharge. No vision changes. HENT: No congestion, no sore throat, no ear pain. Cardiovascular: No chest pain, no palpitations. Respiratory: No shortness of breath, no wheezes, no cough. Gastrointestinal: No abdominal pain, no diarrhea. Persistent vomiting. Genitourinary: No dysuria, no hematuria. Musculoskeletal: Normal range of motion. Skin: No rashes, no pruritis. Neurological: No dizziness, weakness, sensory change, speech change. Endo/Heme/Allergies: No bruising or bleeding. No polydipsia. Pysch: no suicidality, no anxiety, no insomnia. All other systems reviewed and are negative. PFSH [facility] Medical History Posttraumatic stress disorder ?F43.10 - Post-traumatic stress disorder, unspecified (ICD-10) Hyperlipidemia ?E78.5 - Hyperlipidemia, unspecified (ICD-10) Cyclic vomiting syndrome ?R11.15 - Cyclical vomiting syndrome unrelated to migraine (ICD-10) Elevated liver enzymes ?R74.8 - Abnormal levels of other serum enzymes (ICD-10) Cyclical vomiting, in migraine, intractable ?G43.A1 - Cyclical vomiting, in migraine, intractable (ICD-10) Surgical History History of cholecystectomy ?Z90.49 - Acquired absence of other specified parts of digestive tract (ICD-10) Family History Other Cancer Social History (Updated 10/31/24 @ 17:39 by Melony Murguia PA-C) Narrative: SOCIAL HISTORY: 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 Marital status: . Methodist/cultural needs: no. Chemical or radiation exposure: no. Pre- tobacco use: no. Pre- alcohol use: no. Current tobacco use: no. Current alcohol use: no. Recreational drug use: no. Dietary restrictions: no. Blood transfusion acceptable in an emergency: yes. PSYCHOSOCIAL HISTORY: History of depression or currently depressed: Denies. Current or past physical, emotional, or sexual mistreatment: denies. Problems that will make it hard to make it to appointments: Denies. What is your current living situation?: I presently have a place to live Problems where you live: no known problems In the past 12 months, utilities in danger of being shut off: no In past 12 months, lack of transportation kept you from medical appts, meetings, work, or getting things needed for daily living: no In the past 12 mos, have been you worried that your food would run out before you had money to buy more?: never true In the past 12 mos, the food you bought just didn't last and you didn't have money to buy more?: never true How often does anyone, including family, friends and others, physically hurt you: never How often does anyone, including family, friends and others, insult or talk down to you: never How often does anyone, including family, friends and others, threaten you with harm: never How often does anyone, including family, friends and others, scream or curse at you: never Exam Narrative: Exam Narrative: Constitutional: Well-developed, well-nourished, no acute distress. HEENT: Normocephalic, atraumatic. Neck: Normal range of motion. Nontender. Supple. Heart: Intact distal pulses. Lungs: No chest discomfort. No wheezes, rhonchi, or rales. Abdomen: Nontender. Back: Normal range of motion. Extremities: Normal range of motion. No injury. Skin: Intact. No rash. Warm. No erythema or pallor. Neurologic: No altered sensation. No weakness. Alert and oriented. Psychiatric: No suicidality. No anxiety or depression. No insomnia. Nursing notes and vitals signs are reviewed. Const: Vital Signs, click to edit/add: Vital Signs - 24 hr 12/08/24 14:21 Temperature 97.9 F Pulse Rate [Pulse Oximeter] 125 H Respiratory Rate 22 Blood Pressure [Ri ght Upper Arm] 144/81 H Pulse Oximetry 98 Oxygen Delivery Me thod Room Air Course Vital Signs Vital signs: Initial Vital Signs Temperature 97.9 F 12/08/24 14:21 Temperature Source Temporal Artery Scan 12/08/24 14:21 Pulse Rate 125 H 12/08/24 14:21 Respiratory Rate 22 12/08/24 14:21 Blood Pressure 144/81 H 12/08/24 14:21 Blood Pressure Mean 102 12/08/24 14:21 Pulse Oximetry 98 12/08/24 14:21 Oxygen Delivery Method Room Air 12/08/24 14:21 Vital Signs Temperature 97.9 F 12/08/24 14:21 Pulse Rate 125 H 12/08/24 14:21 Respiratory Rate 22 12/08/24 14:21 Blood Pressure 144/81 H 12/08/24 14:21 Pulse Oximetry 98 12/08/24 14:21 Oxygen Delivery Method Room Air 12/08/24 14:21 Temperature 97.9 F 12/08/24 14:21 Pulse Rate 125 H 12/08/24 14:21 Respiratory Rate 22 12/08/24 14:21 Blood Pressure 144/81 H 12/08/24 14:21 Pulse Oximetry 98 12/08/24 14:21 Oxygen Delivery Method Room Air 12/08/24 14:21 Medications Administered Medications: Discontinued Medications Generic Name Dose Route Start Last Admin Trade Name Alyssa PRN Reason Stop Dose Admin Dextrose/Sodium Chloride 1,000 mls @ 1,000 mls/hr 12/08/24 14:38 12/08/24 15:05 5 % Dextrose/0.45% Sod Chlor IV 12/08/24 15:37 1,000 mls/hr .Q1H ONE Administration Ketorolac Tromethamine 15 mg 12/08/24 15:06 12/08/24 15:15 Ketorolac 30 Mg/Ml Inj IVP 12/08/24 15:07 15 mg ONCE ONE Administration Ondansetron HCl 4 mg 12/08/24 14:38 12/08/24 15:04 Ondansetron 2 Mg/Ml Inj IVP 12/08/24 14:39 4 mg ONCE ONE Administration MDM - Nausea/Vomiting/Diarrhea MDM Narrative Medical decision making narrative: This patient is 13 weeks and comes in with persistent vomiting and nausea. An IV was established where she received a L of D5 half-normal saline and 4 mg of Zofran. She began to have some significant pain in her lower abdomen so I did give a 1 time dose of Toradol 15 mg intravenously which brought good relief to her symptoms. She did however have a couple more episodes of vomiting while receiving fluids. She then received an oral dose of Reglan 10 mg and I ordered another L of normal saline. I did use bedside ultrasound also to look at her which showed normal findings. This patient is okay to be discharged home. I did provide prescriptions for both Zofran and Reglan and that can be used as directed. Discharge Plan Discharge Clinical Impression: Hyperemesis gravidarum Patient Disposition: Home, Self-Care Condition: Stable Additional Instructions: Take medication as needed and directed. Take frequent sips of fluids and increase diet as tolerated. Follow up with MD or return if worsening. Prescriptions: New ondansetron 4 mg tablet,disintegrating 4 mg PO Q6H Qty: 20 0RF metoclopramide HCl [Reglan] 10 mg tablet 10 mg PO Q6H PRN (Reason: nausea and vomiting) Qty: 20 0RF No Action amitriptyline 25 mg tablet 25 - 50 mg PO QPM PDC-nmdu-QV-omega 3 fatty no.1 27-1-300 mg capsule PO DAILY Follow Up/Referrals: Provider,Not a Local [Primary Care Provider, Family Practice] Stand Alone Forms: [employer] Patients Info Instructions Procedures POC Ultrasound Abdomen Limited Anatomical areas examined: at 13 weeks gestation. Indications: Lower abdominal pain. Exam Type: Limited abdominal ultrasound Description/ Findings: Normal-appearing fetus with normal heart activity, normal placenta, and normal amniotic fluid. Impression: Normal at 13 weeks gestation.
[2024-12-08] MEDS: ONDANSETRON 2 MG/ML inj 4 MG IVP (15:04)
[2024-12-08] MEDS: 5 % DEXTROSE/0.45% SOD CHLOR 1,000 ML 1000 ML IV (15:05)
[2024-12-08] MEDS: METOCLOPRAMIDE 10 MG TABLET PO (16:10)
[2024-12-08] MEDS: 0.9 % SODIUM CHLORIDE 500 ML 500 ML IV (17:10)
[2024-12-08 17:23] VITALS: BP 129/88; PULSE 102; RESP 18; O2SAT 98
[2024-12-08 17:24] LABS: Hematocrit* 36.7 % (33.0-51.0); Hemoglobin* 12.5 gm/dL (12.0-16.0); Immature Granulocytes Pct Auto 0.2 %; Lymphocytes Absolute Auto 1.10 K/uL (0.90-2.90); Mean Corpuscular HGB Conc 34 gm/dL (32-36); Mean Corpuscular Hemoglobin 29 pg (26-34); Mean Corpuscular Volume 86 fL (80-100); RDW Coefficient of Variation % 12.1 % (11.5-15.5); Red Blood Count* 4.28 m/uL (4.00-5.20); White Blood Count* 16.01 K/uL (4.50-11.00)
[2024-12-08 17:35] LABS: Albumin* 3.8 g/dL (3.3-5.0); Chloride* 104 mmol/L (96-114); Potassium* 3.3 mmol/L (3.6-5.1); Sodium* 131 mmol/L (135-149)
[2024-12-08 17:38] LABS: Alanine Aminotransferase* 63 U/L (4-35); Alkaline Phosphatase* 80 U/L (40-150); Anion Gap 9 mEq/L (7-15); Aspartate Amino Transferase* 34 U/L (12-35); Bilirubin Total* 0.5 mg/dL (0.1-1.5); Blood Urea Nitrogen* 10 mg/dL (5-24); Carbon Dioxide* 18 mmol/L (20-32); Creatinine* 0.5 mg/dL (0.5-1.5); Est. Creatinine Clearance* 133.67; Estimated Glomerular Filt Rate 132 ml/min; Total Protein* 7.0 g/dL (6.0-8.3)
[2024-12-08 17:39] LABS: Calcium* 8.3 mg/dL (8.4-10.6); Glucose* 172 mg/dL (60-115)
[2024-12-08 17:44] LABS: Immature Granulocytes Abs Auto 0.00 K/uL (0.00-0.30)
[2024-12-08 17:45] LABS: Slide Review Reflex No
[2024-12-08 18:29] VITALS: BP 134/89; PULSE 102; RESP 20; TEMP 36.8; O2SAT 100
--- NOTE | 2024-12-08 18:47 | PC.NURSE ---
The patient presents to the [facility] from the ED, for hyperemesis. The patient tells this RN that her abdominal pain from dry heaving was originally 7/10 in the emergency room, but has decreased to 4/10 since medication administration in the ED. The patient says that the medications have not helped her nausea. The patient requests to take a hot shower because that has been what has helped her at home. This RN contacted Dr. Willis via [facility] regarding a plan, and asking if the patient could take a shower. Dr. Willis said that the patient could take a shower and asked if the promethazine administration helped the patient's nausea. This RN told Alba that the patient states that her nausea has not improved, an she recently vomited a moderate amount of yellow-green fluid.
--- NOTE | 2024-12-08 20:07 | PM.OBHPLI ---
OB - H&P: HPI Labor/Induction History of Present Illness Time Seen by Provider: 20:07 Date Seen: 12/08/24 Chief Complaint: The patient is a 29 year old 1 para 0 at 13 weeks gestation by LMP who was admitted from the ED for severe and recurrent vomiting. Past medical history is notable for cyclic vomiting syndrome, where patient was maintained on amitriptyline 25mg QHS per [facility]. She was counseled on potential risk of teratogenicity albeit limited data, where her GI provider advocated for continued use feeling the maternal benefit outweighed potential risk. Ciro Chief complaint: 13 weeks / cant keep food or fluids down Narrative: Ciro Wolfe is a 29 year old female Specific Issues/Plans Partner: Darron H&P: [] # cyclical vomiting syndrome, no vomiting in Managed by [facility] Amitriptyline 25 mg daily pre , will have follow-up with GI: ?[Plan for testing] # [] # [] Imaging: [Summary of level II or follow up US here; BPP scores not necessary] Vaccinations: COVID: [] Flu: [] Tdap: [] RSV: [] 32 week mental health: [] Last pap: 09/27/2024 Meds Home Medications and Allergies Home Medications ?Medication ?Instructions ?Recorded ?Confirmed ?Type amitriptyline 25 mg tablet 25 - 50 mg PO QPM vomiting 09/27/24 12/08/24 History [id number] 3 fatty no.1 27 cap PO DAILY 10/30/24 11/27/24 History mg-1 mg-300 mg capsule metoclopramide HCl 10 mg tablet 10 mg PO Q6H PRN nausea and 12/08/24 Rx (Reglan) vomiting #20 tabs ondansetron 4 mg disintegrating 4 mg PO Q6H #20 tabs 12/08/24 Rx tablet Allergies Allergy/AdvReac Type Severity Reaction Status Date / Time No Known Drug Allergies Allergy Verified 12/08/24 14:19 OB - H&P: Exam Physical Exam: Vital signs: Temp Pulse Resp BP Pulse Ox O2 Del Method 98.3 F 102 H 20 134/89 100 Room Air 12/08/24 18:29 12/08/24 18:29 12/08/24 18:29 12/08/24 18:29 12/08/24 18:29 12/08/24 18:29 OB - Results Labs Labs: Short CBC 12/08/24 Range/Units 17:15 WBC 16.01 H (4.50-11.00) K/uL Hgb 12.5 (12.0-16.0) gm/dL Hct 36.7 (33.0-51.0) % Plt Count 375 (140-440) K/uL BMP 12/08/24 17:15 Sodium 131 L Potassium 3.3 L Chloride 104 Carbon Dioxide 18 L BUN 10 Creatinine 0.5 Glucose 172 H Calcium 8.3 L Liver Function 12/08/24 Range/Units 17:15 Total Bilirubin 0.5 (0.1-1.5) mg/dL AST 34 (12-35) U/L ALT 63 H (4-35) U/L Alkaline Phosphatase 80 (40-150) U/L Albumin 3.8 (3.3-5.0) g/dL
--- NOTE | 2024-12-08 20:26 | PM.OBHPAP1 ---
OB - H&P; HPI Antepartum History of Present Illness Date Seen: 12/08/24 Chief complaint: 13 weeks / cant keep food or fluids down Narrative: Ciro is a 29 year old 1 para 0 at 13 weeks gestation by LMP who was admitted from the ED for severe and recurrent vomiting. Past medical history is notable for cyclic vomiting syndrome, where patient was maintained on amitriptyline 25mg QHS per [facility]. She was counseled on potential risk of teratogenicity albeit limited data, where her GI provider advocated for continued use feeling the maternal benefit outweighed potential risk. Ciro notes she did not significant nausea/vomiting and until about a week ago. In the last 24 hours, things have gotten acutely worse. She had to leave work yesterday due to vomiting, then again today at about noon. Since about 1 o'clock this afternoon, she notes that she is probably vomited 7-8 times with innumerable episodes of retching. She notes she is unable to keep down any solids or liquids. She is not on any antiemetic regimen at home aside from her amitriptyline. In the ED, she received IV Zofran, Reglan and Phenergan without improvement. Labs demonstrated a slight leukocytosis of 16, sodium of 131, potassium of 3.3, creatinine of 0.5, AST of 34 and ALT of 63. Patient notes she has otherwise been in her normal state of health. She has had some mid abdominal pain this afternoon, attributed to musculoskeletal pain from vomiting. She received IV toradol for this in the ED. She denies any pelvic, right or left lower quadrant pain. Denies fevers/chills, no urinary changes. Patient notes she has had baseline constipation in her , last bowel movement about 48 hours ago. She is not on a bowel regimen. No sick contacts. Endorses feeling dizzy and lightheaded, no chest pain or shortness of breath. Patient notes she has lost about 15 lb since October, confirmed -14lbs from her new Ob on 10/30. Past surgical history notable for cholecystectomy. Specific Issues/Plans Partner: Darron H&P: [] # cyclical vomiting syndrome, no vomiting in Managed by [facility] Amitriptyline 25 mg daily pre , will have follow-up with GI: ?[Plan for testing] # [] # [] Imaging: [Summary of level II or follow up US here; BPP scores not necessary] Vaccinations: COVID: [] Flu: [] Tdap: [] RSV: [] 32 week mental health: [] Last pap: 09/27/2024 Meds Home Medications and Allergies Home Medications ?Medication ?Instructions ?Recorded ?Confirmed ?Type amitriptyline 25 mg tablet 25 - 50 mg PO QPM vomiting 09/27/24 12/08/24 History [id number] 3 fatty no.1 27 cap PO DAILY 10/30/24 11/27/24 History mg-1 mg-300 mg capsule metoclopramide HCl 10 mg tablet 10 mg PO Q6H PRN nausea and 12/08/24 Rx (Reglan) vomiting #20 tabs ondansetron 4 mg disintegrating 4 mg PO Q6H #20 tabs 12/08/24 Rx tablet Allergies Allergy/AdvReac Type Severity Reaction Status Date / Time No Known Drug Allergies Allergy Verified 12/08/24 14:19 OB - H&P: Exam Physical Exam: Vital signs: Temp Pulse Resp BP Pulse Ox O2 Del Method 98.3 F 102 H 20 134/89 100 Room Air 12/08/24 18:29 12/08/24 18:29 12/08/24 18:29 12/08/24 18:29 12/08/24 18:29 12/08/24 18:29 Narrative: Vital signs reviewed and are within normal limits aside from mild tachycardia General: Alert and oriented. Leaning over garbage can retching with intermittent vomiting. Psych: Appropriate mood and affect Abdomen: Soft, nontender non distended. No rebound or guarding. Patient reports FHR was confirmed by ED physician via US. OB - Results Labs Labs: Short CBC 12/08/24 Range/Units 17:15 WBC 16.01 H (4.50-11.00) K/uL Hgb 12.5 (12.0-16.0) gm/dL Hct 36.7 (33.0-51.0) % Plt Count 375 (140-440) K/uL BMP 12/08/24 17:15 Sodium 131 L Potassium 3.3 L Chloride 104 Carbon Dioxide 18 L BUN 10 Creatinine 0.5 Glucose 172 H Calcium 8.3 L Liver Function 12/08/24 Range/Units 17:15 Total Bilirubin 0.5 (0.1-1.5) mg/dL AST 34 (12-35) U/L ALT 63 H (4-35) U/L Alkaline Phosphatase 80 (40-150) U/L Albumin 3.8 (3.3-5.0) g/dL OB - A/P Antepartum Assessment and Plan (1) Hyperemesis gravidarum: Status: Acute (2) Supervision of normal first : Status: Acute (3) Cyclic vomiting syndrome: Status: Acute Plan Ciro is a 29 year old 1 para 0 at 13 weeks gestation by LMP who was admitted from the ED for severe and recurrent vomiting. Past medical history is notable for cyclic vomiting syndrome, where patient was maintained on amitriptyline 25mg QHS per [facility] (continued in by advice of her GI provider as maternal benefit was felt to outweigh potential risks.) Patient notes new onset nausea vomiting of in the last week. She has had an acute exacerbation in the last 24 hours, most significantly in the last 8 hours. Patient notes that she has vomited 7-8 times, with retching episodes at least every 15 minutes. In my time speaking with her she was retching a majority of the time with 2 episodes of emesis. She is hemodynamically stable and afebrile, with labs in the ED suggestive of mild leukocytosis, mild hyponatremia/hypokalemia, slight ALT elevation. Symptoms failed to improve despite 2.5 L of IV fluid resuscitation, IV Zofran, Reglan and Phenergan. She was admitted to OB for observation. Currently, plan to withhold maintenance fluids to try to allow patient to sleep as I do feel she has been adequately resuscitated with 2.5 L of crystalloid. Vitals are reassuring, aside from slight tachycardia to 102bpm. Plan to continue her home amitriptyline 25 mg q.h.s. so as to not worsen acute nausea/vomiting in the absence of this. In addition, I counseled her that we will need to initiate and titrate an antiemetic regimen. Plan to start with Zofran ODT 8mg q8H and vitamin B6 25mg QID. Since she has not noted much improvement with Reglan, Zofran or Phenergan, I would like to trial IV Compazine as our next step. If unsuccessful, could consider benadryl (vs reglan or phenergan again). Explained in severe and unresponsive episodes of vomiting, steroids may be required but we will reserve this at this time. Plan to give IV fluid bolus as needed if vomiting persists. Repeat CBC and CMP in the morning, plus TSH with reflex to T4. All questions answered. Care to be assumed by Dr. Rodriguez at 0700.
[2024-12-08] MEDS: ONDANSETRON ODT 4 MG TAB 8 MG PO (20:46)
[2024-12-08] MEDS: PROCHLORPERAZINE 5 MG/ML VIAL 10 MG IV (22:51)
[2024-12-08] MEDS: SODIUM CHLORIDE 0.9 % (FLUSH) 10 ML SYRINGE 5 ML IVF (22:51)
[2024-12-08 22:54] VITALS: BP 127/84; PULSE 96; RESP 18; O2SAT 99
[2024-12-08] MEDS: AMITRIPTYLINE 25 MG TABLET PO (23:34)
[2024-12-08] MEDS: PYRIDOXINE HCL (VITAMIN B6) 25 MG TABLET PO (23:35)
[2024-12-08] MEDS: GI COCKTAIL (VISC LIDO/ANTACID) 30 ML PO (23:37)
[2024-12-09] MEDS: ONDANSETRON ODT 4 MG TAB 8 MG PO (05:01)
[2024-12-09] MEDS: CALCIUM CARBONATE 500 MG CHEW PO (05:09)
[2024-12-09 05:14] VITALS: BP 126/80; PULSE 93; RESP 18; O2SAT 97
[2024-12-09 07:13] LABS: Hematocrit* 37.2 % (33.0-51.0); Hemoglobin* 12.8 gm/dL (12.0-16.0); Immature Granulocytes Pct Auto 0.1 %; Mean Corpuscular HGB Conc 34 gm/dL (32-36); Mean Corpuscular Hemoglobin 29 pg (26-34); Mean Corpuscular Volume 85 fL (80-100); RDW Coefficient of Variation % 12.1 % (11.5-15.5); Red Blood Count* 4.37 m/uL (4.00-5.20); White Blood Count* 18.05 K/uL (4.50-11.00)
[2024-12-09 07:15] LABS: Immature Granulocytes Abs Auto 0.00 K/uL (0.00-0.30); Lymphocytes Absolute Auto 1.50 K/uL (0.90-2.90); Slide Review Reflex No
[2024-12-09 07:29] LABS: Albumin* 4.0 g/dL (3.3-5.0); Chloride* 104 mmol/L (96-114); Potassium* 3.7 mmol/L (3.6-5.1); Sodium* 132 mmol/L (135-149)
[2024-12-09 07:31] LABS: Blood Urea Nitrogen* 5 mg/dL (5-24); Creatinine* 0.4 mg/dL (0.5-1.5); Est. Creatinine Clearance* 167.09; Estimated Glomerular Filt Rate 139 ml/min
[2024-12-09 07:32] LABS: Alanine Aminotransferase* 64 U/L (4-35); Alkaline Phosphatase* 78 U/L (40-150); Anion Gap 12 mEq/L (7-15); Aspartate Amino Transferase* 31 U/L (12-35); Bilirubin Total* 0.8 mg/dL (0.1-1.5); Calcium* 9.1 mg/dL (8.4-10.6); Carbon Dioxide* 16 mmol/L (20-32); Glucose* 113 mg/dL (60-115); Total Protein* 7.3 g/dL (6.0-8.3)
[2024-12-09 08:19] LABS: TSH With Reflex to FT4* 0.226 uIU/mL (0.270-4.200)
[2024-12-09 08:45] VITALS: BP 136/90; PULSE 120; RESP 14; TEMP 36.8; O2SAT 95
[2024-12-09 08:49] LABS: Free T4 Free Thyroxine* 1.52 ng/dL (0.70-1.85)
[2024-12-09] MEDS: PYRIDOXINE HCL (VITAMIN B6) 25 MG TABLET PO (08:57)
[2024-12-09] MEDS: SENNOSIDES/DOCUSATE TABLET 1 TAB PO (08:57)
--- NOTE | 2024-12-09 10:28 | PM.DS1 ---
DS: Providers Provider Date Seen: 12/09/24 Date of admission: 12/08/24 18:16 Primary care physician: Not a Local Provider Admitting Clinician: Dee Willis MD Attending Physician on discharge: MD Jennifer Date of Discharge: 12/09/24 DS: Diagnosis Discharge Diagnosis (1) Hyperemesis gravidarum: Status: Acute (2) Cyclic vomiting syndrome: Status: Acute (3) : Status: Acute DS: Summary Hospital Course Hospital Course: 29 y/o G1 with IUP at 13 2/7 weeks by GOPAL: 06/14/24 admitted for management of Hyperemesis Gravidarum. Today, patient feels much better than yesterday. She has not vomited again for more than 12 hours. She has been able to eat cereal and milk. Labs show improvement of electrolytes. Tolerating oral regimen medication with Vitamin B6, Zofran, Compazine and her usual Amitriptyline. Will proceed with discharge home at this time. Upon chart review patient did have 2 mild range elevated blood pressures at this gestational age, most consistent with CHTN. Plan to review at next scheduled visit. Status at Discharge Functional status at discharge: independent ambulation Overall status at discharge: patient is progressing back to baseline Time Spent with Patient Time attestation: Total time spent providing and/or coordinating discharge services: Time spent: Less than 30 minutes Exam Narrative: Exam Narrative: Vital signs reviewed and are within normal limits aside from mild tachycardia General: Alert and oriented. In no pain. Psych: Appropriate mood and affect Abdomen: Soft, nontender non distended. No rebound or guarding. FHR: 155bpm by bedside US. Const: Vital Signs, click to edit/add: Vital Signs - 24 hr 12/08/24 14:21 12/08/24 17:23 12/08/24 18:29 Temperature 97.9 F 98.3 F Pulse Rate 102 H Pulse Rate [Pulse Oximeter] 125 H 102 H Respiratory Rate 22 18 20 Blood Pressure 134/89 Blood Pressure [Le ft Arm] Blood Pressure [Ri ght Upper Arm] 144/81 H 129/88 Pulse Oximetry 98 98 100 Oxygen Delivery Me thod Room Air Room Air Room Air 12/08/24 22:54 12/09/24 05:14 12/09/24 08:45 Temperature 98.2 F Pulse Rate Pulse Rate [Pulse Oximeter] 96 93 120 H Respiratory Rate 18 18 14 Blood Pressure Blood Pressure [Le ft Arm] 127/84 126/80 136/90 H Blood Pressure [Ri ght Upper Arm] Pulse Oximetry 99 97 95 Oxygen Delivery Me thod Room Air Room Air DS: Data Data Completed and Pending Labs on day of discharge: Labs from last 24 hours 12/09/24 12/08/24 07:03 17:15 WBC 18.05 H 16.01 H RBC 4.37 4.28 Hgb 12.8 12.5 Hct 37.2 36.7 MCV 85 86 MCH 29 29 MCHC 34 34 RDW Coeff of Sandy 12.1 12.1 Plt Count 429 375 Neut % (Auto) 86.1 H 89.5 H Lymph % (Auto) 8.2 L 6.9 L [place] % (Auto) 5.4 3.2 Eos % (Auto) 0.0 0.0 Baso % (Auto) 0.2 0.2 Neut # (Auto) 15.50 H 14.30 H Lymph # (Auto) 1.50 1.10 [place] # (Auto) 1.00 H 0.50 Eos # (Auto) 0.00 0.00 Baso # (Auto) 0.00 0.00 Abs Immat Gran (auto) 0.00 0.00 Imm/Tot Granulo (auto) 0.1 0.2 Sodium 132 L 131 L Potassium 3.7 3.3 L Chloride 104 104 Carbon Dioxide 16 L 18 L Anion Gap 12 9 BUN 5 10 Creatinine 0.4 L 0.5 Estimated Creat Clear 167.09 133.67 Estimated GFR 139 132 Glucose 113 172 H Calcium 9.1 8.3 L Total Bilirubin 0.8 0.5 AST 31 34 ALT 64 H 63 H Alkaline Phosphatase 78 80 Total Protein 7.3 7.0 Albumin 4.0 3.8 TSH 0.226 L Free T4 1.52 Discharge Plan Discharge Disposition: Home, Self-Care Date of Admission: 12/08/24 18:16 Primary Care Provider: Provider,Not a Local Condition: Stable Anticipated Discharge Date/Time: 12/09/24 15:00 Discharge Medications: New pyridoxine (vitamin B6) [Vitamin B-6] 25 mg Tablet 25 mg PO QID Qty: 40 0RF sennosides-docusate sodium [Stool Softener-Laxative] 8.6-50 mg Tablet 1 tab PO DAILY Qty: 30 0RF prochlorperazine maleate 10 mg Tablet 10 mg PO Q6H PRNQty: 30 0RF ondansetron 4 mg Tablet,Disintegrating 8 mg PO Q8H Qty: 40 0RF omeprazole 20 mg capsule,delayed release(DR/EC) 20 mg PO DAILY Qty: 30 2RF Continued amitriptyline 25 mg tablet 25 - 50 mg PO QPM [id number] 3 fatty no.1 27-1-300 mg capsule PO DAILY Discharge Orders: Discharge Order (Routine); Ordered 12/09/24 Ordered By: Aruna Rodriguez Patient Education: Acute Nausea and Vomiting (ED) Additional Instructions: Take medication as needed and directed. Take frequent sips of fluids and increase diet as tolerated. Follow up with MD or return if worsening. Activity Level: Activity as Tolerated Discharge Diet: Regular Follow Up Appointments: Provider,Not a Local [Primary Care Provider, Family Practice] Forms: [facility] [facility] Info Instructions
[2024-12-09 11:00] VITALS: BP 129/83; PULSE 112; RESP 14; TEMP 36.8; O2SAT 96
[2024-12-09] MEDS: OMEPRAZOLE 20 MG CAPSULE DR PO (11:30)
== END 2024-12-09 12:02 | disposition home or self-care (01) ==
LOC: ED 17:03 → OB 18:17
PROVIDERS: Internal Medicine; Admitting Provider Obstetrics & Gynecology; Emergency Provider Emergency Medicine Emergency Medical Services; Visit Provider Obstetrics & Gynecology
DX: O21.0 Mild hyperemesis gravidarum (principal); Z3A.13 13 weeks gestation of pregnancy; R03.0 Elevated blood-pressure reading, without diagnosis of hypertension
CPT/HCPCS: 36415; 76705; 76815; 80053; 84439; 84443; 85025; 96361; 96374; 96375; 99284; 99285; A9270; G0378; J0780; J1885; J2405; J2550; J7030; S5010

== ENCOUNTER 2024-12-14 12:00 | Outpatient (CLI) | payer BC, SELFPAY | END 2024-12-14 12:01 | disposition home or self-care (01) | PROVIDERS: Visit Provider Physician Assistant | DX: O10.911 Unspecified pre-existing hypertension complicating pregnancy, first trimester (principal) | CPT/HCPCS: 80053; 82565; 82570; 84156; 84450; 84460; 84520 ==

== ENCOUNTER 2024-12-15 08:28 | Outpatient (CLI) | payer BC, SELFPAY | END 2024-12-15 08:29 | disposition home or self-care (01) | LOC: NFLDREF 08:29 | PROVIDERS: Visit Provider Physician Assistant | DX: Z34.92 Encounter for supervision of normal pregnancy, unspecified, second trimester (principal) | CPT/HCPCS: 80053; 80074 ==

== ENCOUNTER 2024-12-19 12:53 | Outpatient (CLI) | payer BC, SELFPAY | END 2024-12-19 12:54 | disposition home or self-care (01) | PROVIDERS: Visit Provider Physician Assistant | DX: R11.15 Cyclical vomiting syndrome unrelated to migraine (principal) | CPT/HCPCS: 80053; 82570; 84156 ==

== ENCOUNTER 2024-12-21 07:50 | Outpatient (CLI) | payer BC, SELFPAY ==
--- NOTE | 2024-12-21 08:15 | CRLHL7_ITS ---
For Patients: As a result of the Century Cures Act, medical imaging exams and procedure reports are released immediately into your electronic medical record. You may view this report before your referring provider. If you have questions, please contact your health care provider. INDICATION: Abnormal levels of other serum enzymes COMPARISON: none TECHNIQUE: Real time parker scale imaging and color Doppler analysis was performed of the right upper quadrant. FINDINGS: The patient`s liver is of normal size and has uniform echogenicity. There is a normal appearance of the hepatic IVC and proximal abdominal aorta. There is no evidence of ascites. The gallbladder is absent. The common bile duct is of normal size and measures 3.4 mm in diameter at the level of the vijay hepatis. The pancreas appears normal. There is no evidence of a stone or hydronephrosis within the right kidney. The right kidney measures 10.7 cm in length. IMPRESSION: Status post cholecystectomy. Remainder unremarkable. Dictated by Carter Guerra MD @ 12/21/2024 9:17:19 AM (Electronically Signed)
== END 2024-12-21 07:51 | disposition home or self-care (01) ==
LOC: US 07:50
PROVIDERS: Visit Provider Physician Assistant
DX: R74.8 Abnormal levels of other serum enzymes (principal)
CPT/HCPCS: 76705; 80053

== ENCOUNTER 2025-01-09 08:15 | Outpatient (CLI) | payer BC, SELFPAY | END 2025-01-09 08:16 | disposition home or self-care (01) | LOC: NFLDREF 01-13 16:38 | PROVIDERS: Visit Provider Advanced Practice Midwife | DX: Z13.9 Encounter for screening, unspecified (principal) | CPT/HCPCS: 80053; 80061; 82947 ==

== ENCOUNTER 2025-01-21 19:27 | Emergency (ER) | payer BC, SELFPAY ==
--- OUTSIDE RECORDS SUMMARY | 2024-12-26 07:45 | XMS_ITS | Encounter Summary ---
Author Organization [facility] Address [address] [place] [id number] Care Team Providers Care Varnishing Unit Operator Name Role Phone No Ref-Primary, Physician Primary Care Provider Reason for Referral * Diagnostic Imaging Ultrasound (Routine) - Pending Review Specialty Diagnoses / Procedures Referred By Bryanac t Referred To Contact Radiology. Diagnoses Hyperemesis gravidarum Procedures MFM US OB Complete 2/3 Tri Single Tennille Salazar MD [address] [address] Phone: tel: fax: Referral ID Status Reason Start Date Expiration Date V isits Requested Visits Authorized [id number] Pending Review 12/19/2024 12/19/2025 1 1 F RADIOGRAPHER Reason for Visit * Diagnostic Imaging Ultrasound (Routine) - Pending Review Specialty Diagnoses / Procedures Referred By Contac t Referred To Contact Radiology. Diagnoses Hyperemesis gravidarum Procedures MFM US OB Complete 2/3 Tri Single Tennille Salazar MD [address] [place] [address] Phone: tel: fax: Referral ID Status Reason Start Date Expiration Date V isits Requested Visits Authorized [id number] Pending Review 12/19/2024 12/19/2025 1 1 Encounter Details Date Type Department Care Team (Latest Contact Info) Description 12/26/2024 7:45 AM STAFF RADIOGRAPHER - 12/26/2024 11:59 PM STAFF RADIOGRAPHER Hospital Encounter [facility] [address] [place] [address] Tennille Salazar MD [address] [place], [place] [address] Fabiano Tena MD [address] [place], [place] [id number] Hyperemesis gravidarum Discharge Disposition: Home or Self Care Social History Tobacco Use Types Packs/Day Years Used Date Smoking Tobacco: Never Assessed Adolescent Education Answer Date Record ed Getting School Help Needed Not on file 11/14 Estimated Date of Delivery Comme nts Yes 06/14/2025 Based on last me nstrual period of 09/07/2024 Sex and Gender Information Value Date Recorded Sex Assigned at Not on file Legal Sex Female 11:49 AM CDT Gender Identity Not on file Sexual Orientation Not on file documented as of this encounter Medications at Time of Discharge amitriptyline (ELAVIL) 25 MG tablet Take 25 mg by mouth at bedtime. meclizine 25 MG CHEW Take 25 mg by mouth every 6 hours as needed for dizziness. metoclopramide (REGLAN) 10 MG tablet Take 10 mg by mouth 4 times daily (before meals and nightly). omeprazole (PRILOSEC OTC) 20 MG EC tablet Take 20 mg by mouth daily. ondansetron (ZOFRAN) 4 MG tablet Take 4 mg by mouth every 8 hours as needed for nausea. PKI-CQTPTVEY-TDCV -FA PO Take 1 tablet by mouth daily. pyridOXINE (VITAMIN B-6) 25 MG tablet Take 25 mg by mouth daily. documented as of this encounter Plan of Treatment Not on file documented as of this encounter Procedures Procedure Name Priority Date/Time Associated Diagnosis Comments MFM US OB COMPLETE 2/3 TRI SINGLE Routine 12/26/2024 8:52 AM STAFF RADIOGRAPHER Hyperemesis gravidarum documented in this encounter Results * M US OB Complete 2/ Tri Single (12/26/2024 8:52 AM STAFF RADIOGRAPHER) Anatomical Region Laterality Modality Ultrasound 12/26/2024 7:51 AM STAFF RADIOGRAPHER Impressions 12/27/2024 9:01 AM STAFF RADIOGRAPHER IMPRESSION ----- 1) Dillard intrauterine at 15w 5d gestational age. 2) None of the anomalies commonly detected by ultrasound were evident in the limited anatomic survey described above. 3) Growth parameters and estimated weight were consistent with an appropriate for gestation age pattern of growth. 4) The amniotic fluid volume appeared normal. Narrative 12/27/2024 9:01 AM STAFF RADIOGRAPHER / Trim ----- Pat. Name: CIRO FRASER Study Date: 12/26/2024 7:51am Pat. NO: [id number] Referring MD: MEGHAN BROWN Site: Security Orderly: Tricia Segundo RDMS : 1995 Age: 29 ----- INDICATION ----- Hyperemesis. METHOD ----- Transabdominal ultrasound examination. View: Sufficient ----- Dillard . Number of fetuses: 1 DATING ----- Date Details Gest. age GOPAL LMP 09/07/2024 15 w + 5 d 06/14/2025 Previous U/S 10/30/2024 GA U/S 12/26/2024 based upon AC, BPD, Femur, HC 15 w + 3 d 06/16/2025 Assigned dating based on the LMP, selected on 12/26/2024 15 w + 5 d 06/14/2025 GENERAL EVALUATION ----- Cardiac activity present. FHR 144 bpm. movements: visualized, visualized. Presentation: cephalic Placenta: Anterior, No Previa, > 2 cm from internal os Umbilical cord: 3 vessel cord, normal insertion Amniotic fluid: Amount of AF: normal. MVP 3.5 cm BIOMETRY ----- BPD 30.7 mm 15w 5d Hadlock OFD 38.7 mm -/- Nicolaides HC 110.2 mm 15w 2d Hadlock Cerebellum tr 14.2 mm 14w 1d Nicolaides Nuchal fold 1.9 mm AC 92.7 mm 15w 3d 42% Hadlock Femur 17.3 mm 15w 1d Hadlock Humerus 17.8 mm 15w 1d Sandro Weight Calculation: EFW 120 g 17% Hadlock EFW (lb,oz) 0 lb 4 oz EFW by Hadlock ([id number]) Head / Face / Neck Biometry: Flight Operations Inspector 6.0 mm CM 2.0 mm Nasal bone 3.3 mm ANATOMY ----- The following structures appear normal: Head / Neck Cranium. Head size. Head shape. Lateral ventricles. Choroid plexus. Midline falx. Cavum septi pellucidi. Cerebellum. Cisterna magna. Parenchyma. Thalami. Vermis. Neck. Nuchal fold. Face Lips. Profile. Nose. Maxilla. Mandible. Orbits. Lens. Heart / Thorax 4-chamber view. RVOT view. LVOT view. 3-vessel view. 1-amorxf-tcacbzn view. Situs. Aortic arch view. Bicaval view. Ductal arch view. Superior vena cava. Inferior vena cava. Cardiac position. Cardiac size. Cardiac rhythm. Right lung. Left lung. Diaphragm. Abdomen Abdom. wall. Cord insertion. Stomach. Kidneys. Bladder. Liver. Bowel. Genitals. Spine Cervical spine. Thoracic spine. Lumbar spine. Sacral spine. Extremities / Skeleton Arms. Right arm. Right hand. Left arm. Left hand. Legs. Right leg. Right foot. Left leg. Left foot. sex: female. MATERNAL STRUCTURES ----- Cervix Visualized Appearance: normal Approach - Transabdominal: Cervical length 31.9 mm Right Ovary Visualized Left Ovary Visualized RECOMMENDATION ----- We discussed the findings on today's ultrasound with the patient. Please see EPIC for details of [facility] Consult. Recommend comprehensive US at 18-20 weeks at [facility]. Return to primary provider for continued care. Thank you for the opportunity to participate in the care of this patient. If you have questions regarding today's evaluation or if we can be of further service, please contact the [facility]. anomalies may be present but not detected Procedure Note Fabiano Tena MD - 12/27/2024 ----- Pat. Name: CIRO FRASER Study Date: 12/26/2024 7:51am Pat. NO: [id number] Referring MD: MEGHAN BROWN Site: Security Orderly: Tricia Segundo RDMS : 1995 Age: 29 ----- INDICATION ----- Hyperemesis. METHOD ----- Transabdominal ultrasound examination. View: Sufficient ----- Dillard . Number of fetuses: 1 DATING ----- DateDetailsGest. age GOPAL LMP w + 5 d 06/14/2025 Previous U/S 10/30/2024 GA U/S 12/26/2024ased upon AC, BPD, Femur, HC15 w + 3 d 06/16/2025 Assigned dating based on the LMP, selected on w + 5 d 06/14/2025 GENERAL EVALUATION ----- Cardiac activity present. FHR 144 bpm. movements: visualized,visualized. Presentation: cephalic Placenta: Anterior, No Previa, > 2 cm from internal os Umbilical cord: 3 vessel cord, normal insertion Amniotic fluid: Amount of AF: normal. MVP 3.5 cm BIOMETRY ----- BPD 30.7mm 15w 5dHadlock OFD 38.7mm -/-Nicolaides HC 110.2mm 15w 2dHadlock Cerebellum tr 14.2mm 14w 1dNicolaides Nuchal fold 1.9mm AC 92.7mm 15w 3d 42%Hadlock Femur 17.3mm 15w 1dHadlock Humerus 17.8mm 15w 1dJeanty Weight Calculation: EFW 120g 17%Hadlock EFW (lb,oz) 0 lb 4oz EFW by Hadlock([id number]) Head / Face / Neck Biometry: Flight Operations Inspector 6.0mm CM 2.0mm Nasal bone 3.3mm ANATOMY ----- The following structures appear normal: Head / Neck Cranium. Head size. Head shape.Lateral ventricles. Choroid plexus. Midline falx. Cavum septi pellucidi.Cerebellum. Cisterna magna. Parenchyma. Thalami. Vermis. Neck. Nuchal fold. Face Lips. Profile. Nose. Maxilla.Mandible. Orbits. Lens. Heart / Thorax 4-chamber view. RVOT view. LVOT view.3-vessel view. 1-qnrakl-nnaydxv view. Situs. Aortic arch view. Bicavalview. Ductal arch view. Superior vena cava. Inferior vena cava.Cardiac position. Cardiac size. Cardiac rhythm. Right lung. Left lung.Diaphragm. Abdomen Abdom. wall. Cord insertion. Stomach.Kidneys. Bladder. Liver. Bowel. Genitals. Spine Cervical spine. Thoracic spine.Lumbar spine. Sacral spine. Extremities / Skeleton Arms. Right arm. Right hand. Left arm.Left hand. Legs. Right leg. Right foot. Left leg. Left foot. sex: female. MATERNAL STRUCTURES ----- Cervix Visualized Appearance: normal Approach - Transabdominal:Cervical length 31.9 mm Right Ovary Visualized Left Ovary Visualized RECOMMENDATION ----- We discussed the findings on today's ultrasound with the patient. Please see [facility] for details of [facility] Consult. Recommend comprehensive US at 18-20 weeks at [facility]. Return to primary provider for continued care. Thank you for the opportunity to participate in the care of this patient.If you have questions regarding today's evaluation or if we can be offurther service, please contact the [facility]. anomalies may be present but not detected IMPRESSION ----- 1) Dillard intrauterine at 15w 5d gestational age. 2) None of the anomalies commonly detected by ultrasound were evident inthe limited anatomic survey described above. 3) Growth parameters and estimated weight were consistent with anappropriate for gestation age pattern of growth. 4) The amniotic fluid volume appeared normal. us Tennille Salazar MD [facility] US ORDERABLES Edit ed Result - Final documented in this encounter Visit Diagnoses Diagnosis Hyperemesis gravidarum Mild hyperemesis gravidarum, unspecified as to episode of care documented in this encounter Care Teams Varnishing Unit Operator Relationship Specialty Start Date End Date No Ref-Primary, Physician PCP - General 12/18/24 documented as of this encounter
--- OUTSIDE RECORDS SUMMARY | 2024-12-26 08:45 | XMS_ITS | Encounter Summary ---
Author Organization [place] Address [address] [place] [id number] Care Team Providers Care Engagement Quality Consultant Name Role Phone No Ref-Primary, Physician Primary Care Provider Reason for Referral * Diagnostic Imaging Ultrasound (Routine) - Pending Review Specialty Diagnoses / Procedures Referred By Maximus hernandez Referred To Contact Radiology. Diagnoses Cyclical vomiting Hyperemesis gravidarum related condition, antepartum Procedures [facility] US Comprehensive Single Fabiano Tena MD [address] [place] [address] Phone: tel: fax: Referral ID Status Reason Start Date Expiration Date V isits Requested Visits Authorized [id number] Pending Review 12/26/2024 12/26/2025 1 1 MAGISTRATE Reason for Visit * Reason Comments Ultrasound 2/3 Complete Consult Cyclic vomiting synd martinez, Hyperemesis gravidarum, BMI>30, PTSD, Elevated Liver enzymes, Hyperlipidemia, Elevated BP without HTN diagnosis * Consultation (Routine: Next available opening) - Pending Review Specialty Diagnoses / Procedures Referred By Contac t Referred To Contact Diagnoses Cyclical vomiting Hyperemesis gravidarum Tennille Salazar MD [address] [place] [address] Phone: tel: fax: Referral ID Status Reason Start Date Expiration Date V isits Requested Visits Authorized [id number] Pending Review 12/19/2024 12/19/2025 1 1 Encounter Details Date Type Department Care Team (Late st Contact Info) Description 12/26/2024 8:45 AM [place] MAGISTRATE Office Visit [facility] [place] [address] [place], [place] [address] Tennille Salazar MD [address] [place] [address] Fabiano Tena MD [address] [place] [address] Hyperemesis gravidarum (Primary Dx); related condition, antepartum Social History Tobacco Use Types Packs/Day Years [...] on file documented as of this encounter Last Filed Vital Signs Vital Sign Reading Time Taken Comments Blood Pressure 117/79 12/26/2024 8:31 AM [place] [facility] Pulse 97 12/26/2024 8:30 AM [place] [facility] Temperature - - Respiratory Rate 18 12/26/2024 8:30 AM [place] MAGISTRATE Oxygen Saturation 99% 12/26/2024 8:30 AM [place] MAG[facility] RA Inhaled Oxygen Concentration - - Weight - - Height - - Body Mass Index - - documented in this encounter Progress Notes * Fabiano Tena MD - 12/26/2024 8:45 AM CST Images from the original note were not included. [facility] [address], [place] [address] Main: [phone], Referring Provider: Stephanie RODRIGUEZ Ciro Fraser is a 29 year old at 15w5d by LMP consistent with 6w6d US here for MFM consultation regarding idiopathic cyclic vomiting syndrome. Ciro symptoms began in 2015 and she has been following with [facility] for quite some time, and has hadan extensive prior GI workup. No etiology of her cyclic vomiting syndrome has been identified and has been classified as idiopathic. Prior to , she had been well managed with amitriptyline 25mg one to two tablets every day at bedtime. She has been on this regimen for several years and thishas been working well for her. She notes that outside of she will only have episodes every 1 or 2 years. They are typically quite severe, and result in hospital admission at [facility] in mid-November, records reviewed in clinic today. She notes that during this time, she was unable to tolerate any solid foods for approximately 9 days but was able to tolerate liquid. She was started on Zofran, B6, Unisom, meclazine, omeprazole, and reglan. After discharge she had her electrolytes checked on 12/19/2024, and was notable for elevated LFTs, as well as potassium of 3.0. She was given potassium replacement, which has normalized to 3.5 today. Ciro states that prior to , her weight was approximately 185lbs. Due to associated nausea and vomiting in the first trimester, she had lost approximately 10lbs, and during her severe episode of vomiting in November she also lost another 10lbs, to a low of 165lbs this . She notes that since re-initiation of amitriptyline, she has not had any episodes of vomiting over e last 2 weeks and continues her current medications. Today she is feeling well and denies any symptoms of nausea, vomiting or abdominal pain and feels her idiopathic cyclic vomiting is well controlled and currently in remission. Previous GI Evaluation: 06/07/2020: complete abdominal ultrasound: non-enlarged liver but mildly edematous, otherwise normalexam 06/13/2020: MRI abdomen with MRCP: normal study 06/20/2020 EGD: normal esophagus, gastritis and normal duodenum. Unremarkable duodenal biopsies, gastric biopsies showed reactive gastropathy with negative H. Pylori 06/24/2020: CT head without contrast unremarkable 07/03/2020: gastric emptying scan with abnormal delayed emptying within the 1st 3 hours, however normal at 4 hours 07/16/2020: Upper EUS: mild gastritis with unremarkable post cholecystectomy. Liver biopsy with non-specific reactive hepatitis and mild macrovesicular steatosis. Her is otherwise complicated by the following: - Intractable cyclical vomiting syndrome - Delayed gastric emptying Care: Primary OB care this has been with [facility] OB History Para Term AB Living 1 0 0 0 0 0 SAB IAB Ectopic Multiple Live Births 0 0 0 0 0 # Outcome Date GA Lbr David/2nd Weight Sex Type Anes PTL Lv 1 Current Past Medical History Cyclic vomiting syndrome Past Surgical History Cholecystectomy EGD Medication List Prior to Admission medications Medication Sig Last Dose Taking? Auth Provider Waistband Setter Lockstitch End Date amitriptyline (ELAVIL) 25 MG tablet Take 25 mg by mouth at bedtime. Yes Reported, Patient Yes meclizine 25 MG CHEW Take 25 mg by mouth every 6 hours as needed for dizziness. Yes Reported, Patient metoclopramide (REGLAN) 10 MG tablet Take 10 mg by mouth 4 times daily (before meals and nightly). Yes Reported, Patient omeprazole (PRILOSEC OTC) 20 MG EC tablet Take 20 mg by mouth daily. Yes Reported, Patient ondansetron (ZOFRAN) 4 MG tablet Take 4 mg by mouth every 8 hours as needed for nausea. Yes Reported, Patient VMD-WINGCVUD-OMPA-FA PO Take 1 tablet by mouth daily. Yes Reported, Patient pyridOXINE (VITAMIN B-6) 25 MG tablet Take 25 mg by mouth daily. Yes Reported, Patient No Allergies Patient has no known allergies. Social History Denies use of alcohol, drugs or smoking, specifically denies any marijuana use. Physical Exam BP 117/79 (BP Location: Right arm, Patient Position: Sitting, Cuff Size: Adult Regular) Pulse 97 Resp 18 LMP 09/07/2024 SpO2 99% Physical exam deferred Labs Component Latest Ref Rng 12/26/2024 9:08 AM Sodium 135 - 145 mmol/L 133 (L) Potassium 3.4 - 5.3 mmol/L 3.5 Carbon Dioxide (CO2) 22 - 29 mmol/L 22 Anion Gap 7 - 15 mmol/L 13 Urea Nitrogen 6.0 - 20.0 mg/dL 5.6 (L) Creatinine 0.51 - 0.95 mg/dL 0.49 (L) GFR Estimate >60 mL/min/1.73m2 >90 Calcium 8.8 - 10.4 mg/dL 8.8 Chloride 98 - 107 mmol/L 98 Glucose 70 - 99 mg/dL 84 Alkaline Phosphatase 40 - 150 U/L 77 AST 0 - 45 U/L 44 ALT 0 - 50 U/L 174 (H) Protein Total 6.4 - 8.3 g/dL 6.6 Albumin 3.5 - 5.2 g/dL 3.4 (L) Bilirubin Total <=1.2 mg/dL 0.3 Amylase: 84 Lipase: 34 EKG was done. QTc 422 Ultrasound Results for orders placed or performed during the hospital encounter of 12/26/24 [facility] US OB Complete /3 Tri Single Narrative Trim Pat. Name: CIRO FRASER Study Date: 12/26/2024 7:51am Pat. NO: [id number] Referring MD: MEGHAN STEPHANIE Site: Launch Operator: Tricia Segundo RDMS : 1995 Age: 29 INDICATION Hyperemesis. METHOD Transabdominal ultrasound examination. View: Sufficient Dillard . Number of fetuses: 1 DATING Date Details Gest. age GOPAL LMP 09/07/2024 15 w + 5 d 06/14/2025 Previous U/S 10/30/2024 GA U/S 12/26/2024 based upon AC, BPD, Femur, HC 15 w + 3 d 06/16/2025 Assigned dating based on the LMP, selected on 12/26/2024 15 w + 5 d 06/14/2025 GENERAL EVALUATION Cardiac activity present. FHR 144 bpm. movements: visualized, visualized. Presentation: cephalic Placenta: Anterior, No Previa, > 2 cm from internal os Umbilical cord: 3 vessel cord, normal insertion Amniotic fluid: Amount of AF: normal. MVP 3.5 cm BIOMETRY BPD 30.7 mm 15w 5d Hadlock OFD 38.7 mm -/- Nicolaides HC 110.2 mm 15w 2d Hadlock Cerebellum tr 14.2 mm 14w 1d Nicolaides Nuchal fold 1.9 mm AC 92.7 mm 15w 3d 42% Hadlock Femur 17.3 mm 15w 1d Hadlock Humerus 17.8 mm 15w 1d Sandro Weight Calculation: EFW 120 g 17% Hadlock EFW (lb,oz) 0 lb 4 oz EFW by Hadlock ([id number]) Head / Face / Neck Biometry: Power Manager 6.0 mm CM 2.0 mm Nasal bone 3.3 mm ANATOMY The following structures appear normal: Head / Neck Cranium. Head size. Head shape. Lateral ventricles. Choroid plexus. Midline falx. Cavum septi pellucidi. Cerebellum. Cisterna magna. Parenchyma. Thalami. Vermis. Neck. Nuchal fold. Face Lips. Profile. Nose. Maxilla. Mandible. Orbits. Lens. Heart / Thorax 4-chamber view. RVOT view. LVOT view. 3-vessel view. 5-rlnmgo-lkaqnvb view. Situs. Aortic arch view. Bicaval view. [...] leg. Left foot. sex: female. MATERNAL STRUCTURES Cervix Visualized Appearance: normal Approach - Transabdominal: Cervical length 31.9 mm Right Ovary Visualized Left Ovary Visualized RECOMMENDATION We discussed the findings on today's ultrasound with the patient. Please see EPIC for details of Ciro' [facility] Consult. Recommend comprehensive US at 18-20 weeks at [facility]. Return to primary provider for continued care. Thank you for the opportunity to participate in the care of this patient. If you have questions regarding today's evaluation or if we can be of further service, please contact the [facility]. anomalies may be present but not detected Impression IMPRESSION 1) Dillard intrauterine at 15w 5d gestational age. 2) None of the anomalies commonly detected by ultrasound were evident in the limited anatomicsurvey described above. 3) Growth parameters and estimated weight were consistent with an appropriate for gestation age pattern of growth. 4) The amniotic fluid volume appeared normal. Assessment/Counseling Ciro Fraser is a 29 year old at 15w5d by LMP consistent with 6w6d US here for MFM consultation regarding history of idiopathic cyclic nausea and vomiting. Ciro is currently well controlled with her medication regimen and has been well managed by her primary Ob-Rn Bone Marrow Transplant with initiation of medications for nausea and vomiting of , which is now much improved, and has re-initiated amitriptyline for treatment of her idiopathic cyclic vomiting, the most recent episode of which is now resolved. Management of this condition, as it is idiopathic, will be focused on avoidance of any identifiable triggers and supportive management with treatment goals to prevent dehydration, monitor for and treat electrolyte abnormalities, and medication management for treatment of symptoms with the hope to minimize/prevent effects if severe dehydration of severe electrolyte abnormalities were to develop. We reviewed standard management, including the use of pyroxidine, doxylamine, antihistamines and seotonin antagonists. We also discussed using her Amitriptyline that she has been stable on for quite some time to help reduce the risk for further episodes. We discussed that amitriptyline is associated with a small risk of withdrawal symptoms and could have experiences of jitteriness and withdrawal after delivery. Therefore, recommend notifying Ciro' pediatric provider of her medication history so close monitoring of her baby after canbe undertaken. Given small risk, delivery at [facility] is very reasonable. We did discuss today that if she were to have another severe episode, resulting in significant weight loss and inability totolerate PO, that she may require enteral feeding through NG or PEG tube. We would not recommend placement of PICC line during as a first line measure, as there are significant risks associated with this including thrombosis and sepsis, and given resolution of her symptoms, she hopefully will remain asymptomatic on her current medications. Ciro typically has elevation of her transaminases during acute episodes, as she recently had, andthese are also now improving. Recommend re-check in ~2 weeks as well to ensure continued resolution/normalization. Ciro has used Reglan for symptom management during acute episodes, which she has found helpful and recommend that she would continue to use this during as well if she were to have recurrence of symptoms. However, given that she has been well controlled on Amitriptyline, I am hopeful that she will do well during and post- as long as she stays on this regimen. Certainly,if her symptoms were to recur, treatment with her current medications (liquid or IV) and adding Reglan in addition to IVF and electrolyte replacement is indicated. Please feel free to reach to us in the case of recurrence if additional questions arise. Recommendations Genetic screening - Declined genetic counseling visit today. Medications - Continue current medications: Amitriptyline, B6, unisom, zofran, meclazine PRN reglan - Start ASA 81mg daily for pre-eclampsia risk reduction, given BMI >30 and nulliparous Laboratory evaluation - Recheck CMP in 2 weeks to ensure continued normalization of LFT and normal electrolytes - Monitor LFT and electrolytes closely if recurrence of cyclic vomiting symptoms Maternal antepartum management - Small, frequent meals and avoidance of triggers for cyclic vomiting - Recommend fluid or electrolyte repletion early if signs or symptoms of worsening vomiting - EKG obtained today to monitor QT interval for selection of anti-emetic medications, as many of these can alter her QT interval, which returned within normal limits Ultrasound surveillance - Comprehensive ultrasound in 4 weeks at [facility] Timing and mode of delivery - Route and timing of delivery per routine obstetric indications if cyclic vomiting remains in remission. The patient was seen and evaluated with Dr. Fabiano Tena. At the end of our discussion, Ms. Fraser indicated that her questions were answered and she seemed satisfied with our discussion. Thank you for allowing us to participate in the care of your patient.Please do not hesitate to contact us if you have further questions regarding the management of yourpatient. Carter Mike Maternal Medicine Fellow Physician Attestation I, Fabiano Tena MD, saw this patient and agree with the findings and plan of care as documentedin the note. Items personally reviewed/procedural attestation: vitals, labs, imaging and agree with the interpretation documented in the note, and EKG and agree with the interpretation documented in the note. I spent a total of 60 minutes (excluding the ultrasound interpretation) on the date of this encounter including preparing to see the patient (reviewing medical records/tests), in direct [id number] contact with the patient during the visit counseling and discussing the plan of care and documentingthe visit in the electronic medical record. Fabiano Tena MD MAGISTRATE documented in this encounter Nursing Notes * Alfreda Nascimento RN - 12/26/2024 8:45 AM CST Ciro seen in clinic today at 15w5d gestation for 2/3 Complete/MFM Consult d/t Cyclic vomiting syndrome, Hyperemesis gravidarum, BMI>30, PTSD, Elevated Liver enzymes, Hyperlipidemia, Elevated BP without HTN diagnosis. Pt here with . VS obtained. Meds and allergies reviewed. Patient reports not yet feeling movement, denies pain, denies contractions/pre-term labor, leaking of fluid, or bleeding. Dr. Mike and Dr. Tena met with pt and discussed POC, see separate note. Pt walked to outpatient lab for lab draw during appt. EKG obtained in clinic. Plan for L2 in 4 weeks. Plans to do in [facility] with MFM. Pt discharged stable and ambulatory. Alfreda Nascimento RN MAGISTRATE documented in this encounter Plan of Treatment Scheduled Orders Name Type Priority Associated Diagnoses Orde r Schedule MFM US Comprehensive Single Imaging Routine Hyperemesis gravidarum related condition, antepartum Expected: 01/23/2025 (Approximate), Expires: 10/26/2025 documented as of this encounter Procedures Procedure Name Priority Date/Time Associated Diagnosis Comments EKG 12-LEAD COMPLETE W/READ - CLINICS Routine 12/26/2024 9:59 AM [place] Hyperemesis gravidarum related condition, antepartum documented in this encounter Results * EKG 12-lead complete w/read - Clinics (12/26/2024 9:59 AM [place] MAGISTRATE) Systolic Blood Pressure mmHg RADIOLOGY RESULTS Diastolic Blood Pressure mmHg RADIOLOGY RESULTS Ventricular Rate 92 BPM RAD IOLOGY RESULTS Atrial Rate 92 BPM RADIOLOG Y RESULTS AL Interval 122 ms RADIOLOG Y RESULTS QRS Duration 66 ms RADIOLO GY RESULTS QT 342 ms RADIOLOGY RESULTS QTc 422 ms RADIOLOGY RESULTS P Carter 17 degrees RADIOLOGY RESULTS R AXIS -12 degrees RADIOLOGY RESULTS T Carter 13 degrees RADIOLOGY RESULTS Interpretation ECG Sinus rhythm Minimal voltage criteria for LVH, may be normal variant ( R in aVL ) Borderline ECG No previous ECGs available Confirmed by MD MÉNDEZ DAVID ([id number]) on 12/27/2024 2:24:21 PM RADIOLOGY RESULTS 12/26/2024 9:59 AM [place] MAGISTRATE 12/27/2024 2:24 PM [place] MAGISTRATE Fabiano Tena MD ECG ORDERABLES Edited Result - Final RADIOLOGY RESULTS * Lipase (12/26/2024 9:08 AM [place] MAGISTRATE) Pathologist [facility] Lipase 34 13 - 60 U/L 12/26/2024 9:38 AM [place] MAGISTRATE UR LABORATORY Comment:On 03/31/2022 the as say method at [facility] laboratory was changed to the Ying Lipase method on the Sunil c6000. Results obtained with different assay methods or kits cannot be used interchangeably, and therefore, direct comparison to results obtained from this laboratory prior to 03/31/2022 should be interpreted with caution, with each result interpreted in the context of its own reference interval. Blood STRUCTURE OF LEFT UPPER LIMB / Unknown Venipuncture / Unknown 12/26/2024 9:08 AM [place] MAGISTRATE 12/26/2024 9:08 AM [place] MAGISTRATE Fabiano Tena MD LAB - BLOOD ORDERABLES Final Result UR LABORATORY [facility] [address] [facility], [address] [id number] * Amylase (12/26/2024 9:08 AM [place] MAGISTRATE) Pathologist [facility] Amylase 84 28 - 100 U/L 12/26/2024 9:38 AM [place] MAGIST[place] UR LABORATORY Blood STRUCTURE OF LEFT UPPER LIMB / Unknown Venipuncture / Unknown 12/26/2024 9:08 AM [place] MAGISTRATE 12/26/2024 9:08 AM [place] MAGISTRATE us Fabiano Tena MD LAB - BLOOD ORDERABLES Final Result UR LABORATORY [facility] [address] [facility], [address] [place] [id number] * CBC with Platelets (12/26/2024 9:08 AM [place] MAGISTRATE) Pathologist [facility] WBC Count 10.60 4.00 - 11.00 10e3/uL 12/26/2024 9:21 AM [place] MAGIST[facility] UR LABORATORY RBC Count 3.99 3.80 - 5.20 10e6/uL 12/26/2024 9:21 AM [place] MAGIST[facility] UR LABORATORY Hemoglobin 11.7 11.7 - 15.7 g/dL 12/26/2024 9:21 AM [place] MAGIST[facility] UR LABORATORY Hematocrit 35.0 35.0 - 47.0 % 12/26/2024 9:21 AM [place] MAGIST[facility] UR LABORATORY MCV 87.7 78.0 - 100.0 fL 12/26/2024 9:21 AM [place] MAGIST[facility] UR LABORATORY MCH 29.3 26.5 - 33.0 pg 12/26/2024 9:21 AM [place] MAGIST[facility] UR LABORATORY MCHC 33.4 31.5 - 36.5 g/dL 12/26/2024 9:21 AM [place] MAGIST[facility] UR LABORATORY RDW 12.6 10.0 - 15.0 % 12/26/2024 9:21 AM [place] MAGIST[facility] UR LABORATORY Platelet Count 339 150 - 450 10e3/uL 12/26/2024 9:21 AM [place] MAGIST[facility] UR LABORATORY Blood STRUCTURE OF LEFT UPPER LIMB / Unknown Venipuncture / Unknown 12/26/2024 9:08 AM [place] MAGISTRATE 12/26/2024 9:08 AM [place] MAGISTRATE us Fabiano Tena MD LAB - BLOOD ORDERABLES Final Result UR LABORATORY [facility] [address] [facility], [address] [place] [address], [facility] * (ABNORMAL) Comprehensive metabolic panel (12/26/2024 9:08 AM [place] MAGISTRATE) Sodium 133(L) 135 - 145 mmol/L 12/26/2024 9:38 AM [place] MAG[facility] UR LABORATORY Potassium 3.5 3.4 - 5.3 mmol/L 12/26/2024 9:38 AM [place] [facility] UR LABORATORY Carbon Dioxide (CO2) 22 22 - 29 mmol/L 12/26/2024 9:38 AM [place] MAGIST[facility] UR LABORATORY Anion Gap 13 7 - 15 mmol/L 12/26/2024 9:38 AM [place] [facility] UR LABORATORY Urea Nitrogen 5.6(L) 6.0 - 20.0 mg/dL 12/26/2024 9:38 AM [place] MAG[facility] UR LABORATORY Creatinine 0.49(L) 0.51 - 0.95 mg/dL 12/26/2024 9:38 AM [place] MAG[facility] UR LABORATORY GFR Estimate >90 >60 mL/min/1.7 3m2 12/26/2024 9:38 AM [place] MAGISTRATE UR LABORATORY Comment:eGFR calculated us2020 CKD-EPI equation. Calcium 8.8 8.8 - 10.4 mg/dL 12/26/2024 9:38 AM [place] MAG[facility] UR LABORATORY Chloride 98 98 - 107 mmol/L 12/26/2024 9:38 AM [place] MAGIST[facility] UR LABORATORY Glucose 84 70 - 99 mg/dL 12/26/2024 9:38 AM [place] MAGIST[facility] UR LABORATORY Alkaline Phosphatase 77 40 - 150 U/L 12/26/2024 9:38 AM [place] MAGIST[facility] UR LABORATORY AST 44 0 - 45 U/L 12/26/2024 9:38 AM [place] MAGIST[facility] UR LABORATORY ALT 174(H) 0 - 50 U/L 12/26/2024 9:38 AM [place] MAGIST[facility] UR LABORATORY Protein Total 6.6 6.4 - 8.3 g/dL 12/26/2024 9:38 AM [place] MAGIST[facility] UR LABORATORY Albumin 3.4(L) 3.5 - 5.2 g/dL 12/26/2024 9:38 AM [place] MAG[facility] UR LABORATORY Bilirubin Total 0.3 <=1.2 mg/dL 12/26/2024 9:38 AM [place] MAGIST[facility] UR LABORATORY Blood STRUCTURE OF LEFT UPPER LIMB / Unknown Venipuncture / Unknown 12/26/2024 9:08 AM [place] MAGISTRATE 12/26/2024 9:08 AM [place] MAGISTRATE us Fabiano Tena MD LAB - BLOOD ORDERABLES Final Result UR LABORATORY [facility] [address] [facility] [place] [address] documented in this encounter Visit Diagnoses Diagnosis Hyperemesis gravidarum- Primary Mild hyperemesis gravidarum, unspecified as to episode of care related condition, antepartum documented in this encounter Care Teams Engagement Quality Consultant Relationship Specialty Start Date End Date No Ref-Primary, Physician PCP - General 12/18/24 documented as of this encounter
--- OUTSIDE RECORDS SUMMARY | 2024-12-26 09:30 | XMS_ITS | Encounter Summary ---
Author Organization [facility] Address [address] [place] [address] Care Team Providers Care Shoe Cleaner Name Role Phone No Ref-Primary, Physician Primary Care Provider Encounter Details Date Type Department Care Team (Late st Contact Info) Description 12/26/2024 9:30 AM LOG COOKER [facility] [address] [place] [address] [phone] Tennille Salazar MD [address] [place] [address] Fabiano Tena MD [address] [place], [place] [address] [address] [id number] Cyclical vomiting; Hyperemesis gravidarum; related condition, antepartum Social History Tobacco Use [...] on file documented as of this encounter Plan of Treatment Not on file documented as of this encounter Procedures Procedure Name Priority Date/Time Associated Diagnosis Comments LIPASE Routine 12/26/2024 9:08 AM LOG COOKER Cyclical vomiting Hyperemesis gravidarum related condition, antepartum COMPREHENSIVE METABOLIC PANEL Routine 12/26/2024 9:08 AM LOG COOKER Cyclical vomiting Hyperemesis gravidarum related condition, antepartum AMYLASE Routine 12/26/2024 9:08 AM LOG COOKER Cyclical vomiting Hyperemesis gravidarum related condition, antepartum CBC WITH PLATELETS Routine 12/26/2024 9: 08 AM LOG COOKER Cyclical vomiting Hyperemesis gravidarum related condition, antepartum documented in this encounter Results * Lipase (12/26/2024 9:08 AM LOG COOKER) Lipase 34 13 - 60 U/L 12/26/2024 9:38 AM LOG COOKER UR LABORATORY Comment:On 03/31/2022 the as say method at [facility] laboratory was changed to the [...] Unknown Venipuncture / Unknown 12/26/2024 9:08 AM LOG COOKER 12/26/2024 9:08 AM LOG COOKER us Fabiano Tena MD LAB - BLOOD ORDERABLES Final Result UR LABORATORY [facility] [address] [facility] [facility] [place] [address], [facility] * Amylase (12/26/2024 9:08 AM LOG COOKER) Amylase 84 28 - 100 U/L 12/26/2024 9:38 AM LOG COOKER UR LAB[facility]ORY Blood STRUCTURE OF LEFT UPPER LIMB / Unknown Venipuncture / Unknown 12/26/2024 9:08 AM LOG COOKER 12/26/2024 9:08 AM LOG COOKER Fabiano Tena MD LAB - BLOOD ORDERABLES Final Result UR LABORATORY [facility] [address] [facility], [address] [place] [address] * CBC with Platelets (12/26/2024 9:08 AM LOG COOKER) WBC Count 10.60 4.00 - 11.00 10e3/uL 12/26/2024 9:21 AM LOG COOKER UR LAB[facility]ATORY RBC Count 3.99 3.80 - 5.20 10e6/uL 12/26/2024 9:21 AM LOG COOKER UR LAB[facility]ATORY Hemoglobin 11.7 11.7 - 15.7 g/dL 12/26/2024 9:21 AM LOG COOKER UR LAB[facility]ATORY Hematocrit 35.0 35.0 - 47.0 % 12/26/2024 9:21 AM LOG COOKER UR LAB[facility] MCV 87.7 78.0 - 100.0 fL 12/26/2024 9:21 AM LOG COOKER UR LAB[facility]ORY MCH 29.3 26.5 - 33.0 pg 12/26/2024 9:21 AM LOG COOKER UR LAB[facility]ORY MCHC 33.4 31.5 - 36.5 g/dL 12/26/2024 9:21 AM LOG COOKER UR LAB[facility]ATORY RDW 12.6 10.0 - 15.0 % 12/26/2024 9:21 AM LOG COOKER UR LAB[facility]ORY Platelet Count 339 150 - 450 10e3/uL 12/26/2024 9:21 AM LOG COOKER UR LAB[facility]ATORY Blood STRUCTURE OF LEFT UPPER LIMB / Unknown Venipuncture / Unknown 12/26/2024 9:08 AM LOG COOKER 12/26/2024 9:08 AM LOG COOKER Fabiano Tena MD LAB - BLOOD ORDERABLES Final Result UR LABORATORY [facility] [address] [facility], [address] [phone] * (ABNORMAL) Comprehensive metabolic panel (12/26/2024 9:08 AM LOG COOKER) Sodium 133(L) 135 - 145 mmol/L 12/26/2024 9:38 AM LOG COOKER UR LAB[facility]ATORY Potassium 3.5 3.4 - 5.3 mmol/L 12/26/2024 9:38 AM LOG COOKER UR LAB[facility] Carbon Dioxide (CO2) 22 22 - 29 mmol/L 12/26/2024 9:38 AM LOG COOKER [facility] LAB[facility] Anion Gap 13 7 - 15 mmol/L 12/26/2024 9:38 AM LOG COOKER UR [facility] Urea Nitrogen 5.6(L) 6.0 - 20.0 mg/dL 12/26/2024 9:38 AM LOG COOKER UR LAB[facility] Creatinine 0.49(L) 0.51 - 0.95 mg/dL 12/26/2024 9:38 AM LOG COOKER UR LAB[facility] GFR Estimate >90 >60 mL/min/1.7 3m2 12/26/2024 9:38 AM LOG COOKER UR LAB[facility]ORY Comment:eGFR calculated us2020 CKD-EPI equation. Calcium 8.8 8.8 - 10.4 mg/dL 12/26/2024 9:38 AM LOG COOKER [facility] LAB[facility] Chloride 98 98 - 107 mmol/L 12/26/2024 9:38 AM LOG COOKER [facility] Glucose 84 70 - 99 mg/dL 12/26/2024 9:38 AM LOG COOKER [facility] Alkaline Phosphatase 77 40 - 150 U/L 12/26/2024 9:38 AM LOG COOKER [facility] AST 44 0 - 45 U/L 12/26/2024 9:38 AM LOG COOKER [facility] ALT 174(H) 0 - 50 U/L 12/26/2024 9:38 AM LOG COOKER [facility] Protein Total 6.6 6.4 - 8.3 g/dL 12/26/2024 9:38 AM LOG COOKER UR [facility] Albumin 3.4(L) 3.5 - 5.2 g/dL 12/26/2024 9:38 AM LOG COOKER UR LAB[facility]ORY Bilirubin Total 0.3 <=1.2 mg/dL 12/26/2024 9:38 AM LOG COOKER UR LAB[facility] Blood STRUCTURE OF LEFT UPPER LIMB / Unknown Venipuncture / Unknown 12/26/2024 9:08 AM LOG COOKER 12/26/2024 9:08 AM LOG COOKER us Fabiano Tena MD LAB - BLOOD ORDERABLES Final Result UR LABORATORY [facility] [address] [facility] [place] [address], [facility] documented in this encounter Visit Diagnoses Diagnosis Cyclical vomiting Persistent vomiting Hyperemesis gravidarum Mild hyperemesis gravidarum, unspecified as to episode of care related condition, antepartum documented in this encounter Care Teams Shoe Cleaner Relationship Specialty Start Date End Date No Ref-Primary, Physician PCP - General 12/18/24 documented as of this encounter
--- OUTSIDE RECORDS SUMMARY | 2025-01-21 19:29 | XMS_ITS | Encounter Summary ---
Author Organization [facility] Address [address] [place] [address] Care Team Providers Care Kap[employer] And [employer] Machine Operator Name Role Phone No Ref-Primary, Physician Primary Care Provider Reason for Referral * Consultation (Routine: Next available opening) - Pending Review Specialty Diagnoses / Procedures Referred By Contac t Referred To Contact Diagnoses Cyclical vomiting Hyperemesis gravidarum Tennille Salazar MD [address] [address] Phone: tel: fax: Referral ID Status Reason Start Date Expiration Date V isits Requested Visits Authorized Pending Review 12/19/2024 12/19/2025 1 1 Question Answer Office Visit Type: MFM Consult Comments Pac * Diagnostic Imaging Ultrasound (Routine) - Pending Review Specialty Diagnoses / Procedures Referred By Contac t Referred To Contact Radiology. Diagnoses Cyclical vomiting Hyperemesis gravidarum Procedures MFM US Comprehensive Single Tennille Salazar MD [address] [place] [address] Phone: tel: fax: Referral ID Status Reason Start Date Expiration Date V isits Requested Visits Authorized [id number] Pending Review 12/19/2024 12/19/2025 1 1 Encounter Details Date Type Department Care Team (Late st Contact Info) Description 12/19/2024 Orders Only [facility] [address] [address] Steff Ferrer RN Cyclical vomiting (Primary Dx); Hyperemesis gravidarum Social History Tobacco Use Types Packs/Day Years Used Date Smoking Tobacco: Never Assessed Adolescent Education Answer Date Record ed Getting School Help Needed Not on file 11/14 Comments Unknown Sex and Gender Information Value Date Recorded Sex Assigned at Not on file Legal Sex Female 11:49 AM CDT Gender Identity Not on file Sexual Orientation Not on file documented as of this encounter Plan of Treatment Scheduled Orders Name Type Priority Associated Diagnoses Orde r Schedule [facility] Comprehensive Single Imaging Routine Cyclical vomiting Hyperemesis gravidarum Expected: 01/15/2025 (Approximate), Expires: 10/19/2025 Scheduled Referrals Name Type Priority Associated Diagnoses Orde r Schedule [facility] Office Visit - [facility] Consult Referral Routine: Next available opening Cyclical vomiting Hyperemesis gravidarum Expected: 01/15/2025 (Approximate), Expires: 12/19/2025 documented as of this encounter Visit Diagnoses Diagnosis Cyclical vomiting- Primary Persistent vomiting Hyperemesis gravidarum Mild hyperemesis gravidarum, unspecified as to episode of care documented in this encounter Care Teams [employer] Machine Operator Relationship Specialty Start Date End Date No Ref-Primary, Physician PCP - General 12/18/24 documented as of this encounter
--- OUTSIDE RECORDS SUMMARY | 2025-01-21 19:29 | XMS_ITS | Encounter Summary ---
Author Organization [facility] Address [address] [place] [address] Care Team Providers Care [employer] Specialists Name Role Phone Unavailable Primary Care Provider Unavailabl e Reason for Referral * Consultation (Routine: Next available opening) - Pending Review Specialty Diagnoses / Procedures Referred By Maximus hernandez Referred To Contact Diagnoses related condition, antepartum [facility] [place] [address] Phone: tel: fax: [facility] [place] [address] [place] [address] Phone: tel: fax: Referral ID Status Reason Start Date Expiration Date V isits Requested Visits Authorized [id number] Pending Review 12/17/2024 12/17/2025 1 1 Question Answer Preferred Location: [facility] Working Due Date: 06/14/2025 US Ordering Instructions: If US ONLY is requested, select appropriate US Order and DO NOT order MFM Consult. Reason for Referral: Consult Consult Type: MFM MD (Consult may be ordered for clinical questions beyond US interpretation) Indication (* indicates inclusion of genetic counseling): Other (enter details in Comments) - Cyclical vomiting syndrome, mild hyperemesis gravidarium, will likely need to involve Gi for IV nutrition Comments There is no height or weight on file to calculate BMI. >> Patient may proceed with recommendations for further testing as directed by the Maternal Medicine Specialist >> >> If requesting Echo: MFM will determine appropriate location for exam due to indication. Please be aware that coverage of these services is subject to the terms and limitations of your health insurance plan. Call member services at your health plan with any benefit or coverage questions. Encounter Details Date Type Department Care Team (Latest Contact Info) Description 12/17/2024 Transcribe Orders [facility] [place] [address] [place] [phone] [facility] [address] [place] [address] related condition, antepartum (Primary Dx) Social History Tobacco Use Types Packs/Day Years [...] of this encounter Plan of Treatment Scheduled Referrals Name Type Priority Associated Diagnoses Orde r Schedule [facility] Referral - Referral Routine: Next available opening related condition, antepartum Expected: 12/17/2024 (Approximate), Expires: 06/15/2025 documented as of this encounter Visit Diagnoses Diagnosis related condition, antepartum- Primary documented in this encounter
--- OUTSIDE RECORDS SUMMARY | 2025-01-21 19:30 | XMS_ITS | Encounter Summary ---
Author Organization [place] [facility] Address [address] [place] [address] Care Team Providers Care Blood Bank Technician Name Role Phone No Ref-Primary, Physician Primary Care Provider Encounter Details Date Type Department Care Team (Late st Contact Info) Description 12/14/2024 Medical Correspondence [facility] Information Management [address] [facility] [facility] [address] [place] [address] Scan, Non-Provider Social History Tobacco Use Types Packs/Day Years [...] on file documented as of this encounter Visit Diagnoses Not on filedocumented in this encounter Care Teams Blood Bank Technician Relationship Specialty Start Date End Date No Ref-Primary, Physician PCP - General 12/18/24 documented as of this encounter
--- OUTSIDE RECORDS SUMMARY | 2025-01-21 19:30 | XMS_ITS | Clinical Summary ---
Author Organization [place] Address [facility] [place] [address] Care Team Providers Care Chief Service Dispatcher Name Role Phone No Ref-Primary, Physician Primary Care Provider Allergies No known active allergies Medications [id number] N-FA PO Take 1 tablet by mouth daily. Active amitriptyline (ELAVIL) 25 MG tablet Take 25 mg by mouth at bedtime. Active metoclopramide (REGLAN) 10 MG tablet Take 10 mg by mouth 4 times daily (before meals and nightly). Active ondansetron (ZOFRAN) 4 MG tablet Take 4 mg by mouth every 8 hours as needed for nausea. Active pyridOXINE (VITAMIN B-6) 25 MG tablet Take 25 mg by mouth daily. Active omeprazole (PRILOSEC OTC) 20 MG EC tablet Take 20 mg by mouth daily. Active meclizine 25 MG CHEW Take 25 mg by mouth every 6 hours as needed for dizziness. Active Active Problems Problem Noted Date Diagnosed Date Idiopathic acute pancreatitis 06/03/2020 Chronic post-traumatic stress disorder (PTSD) Abnormal levels of other serum enzymes 8 Intractable cyclical vomiting syndrome 8 Estimated Date of Delivery Comme nts Yes 06/14/2025 Based on last me nstrual period of 09/07/2024 Encounters Date Type Department Care Team Description 01/10/2025 Results Follow-Up [facility] [place] [address] [place], [place] [address] Ioana Godinez RN 12/26/2024 9:30 AM PULVERIZER TENDER Lab [facility] [address] [place] [phone] Tennille Salazar MD Yamamura, Yasuko, MD Cyclical vomiting; Hyperemesis gravidarum; related condition, antepartum 12/26/2024 8:45 AM PULVERIZER TENDER Office Visit [facility] Maternal Medicine [facility] [address] [place] [address] Tennille Salazar MD Yamamura, Yasuko, MD Hyperemesis gravidarum (Primary Dx); related condition, antepartum 12/26/2024 7:45 AM PULVERIZER TENDER - 12/26/2024 11:59 PM PULVERIZER TENDER Hospital Encounter [facility]aternal Medicine [facility] [address] [place] [phone] Tennille Salazar MD Yamamura, Yasuko, MD Hyperemesis gravidarum Discharge Disposition: Home or Self Care 12/26/2024 Travel 12/25/2024 Travel 12/20/[address] [facility] Maternal Medicine [facility] [address] [place] [address] Alfreda Nascimento, SUZANNE Ultrasound (2/3 Complete); Consult (Cyclic vomiting syndrome, Hyperemesis gravidarum, PTSD, BMI>30, Elevated liver enzymes, Elevated BP without dx of HTN, Hyperlipidemia) 12/20/[address] [facility] Maternal Medicine [facility] [address] [place] [address] Alfreda Nascimento RN 12/19/[address] [facility] Maternal Medicine [facility] [address] [place] [address] Steff Ferrer RN Hyperemesis gravidarum (Primary Dx) 12/19/[address] [facility] Maternal Medicine [facility] [address] [place] [address] Effertz, Steff N, RN Cyclical vomiting (Primary Dx); Hyperemesis gravidarum 12/17/[address] [facility] [place] [address] [facility] [address] [place] [address] Kennethmay related condition, antepartum (Primary Dx) 12/14/[address] [facility] Health Information Management [address] [place] [address] Scan, Non-Provider from Last 3 Months Social History Tobacco Use Types Packs/Day Years [...] on file Sexual Orientation Not on file Last Filed Vital Signs Vital Sign Reading Time Taken Comments Blood Pressure 117/79 12/26/2024 8:31 AM PULVERIZER TENDER Pulse 97 12/26/2024 8:30 AM PULVERIZER TENDER Temperature - - Respiratory Rate 18 12/26/2024 8:30 AM PULVERIZER TENDER Oxygen Saturation 99% 12/26/2024 8:30 AM PULVERIZER TENDER RA Inhaled Oxygen Concentration - - Weight - - Height - - Body Mass Index - - Plan of Treatment Health Maintenance Due Date Last Done Comments ADVANCE CARE PLANNING 1997 ANNUAL REVIEW OF HM ORDERS 1997 YEARLY PREVENTIVE VISIT 2000 HIV SCREENING 2012 HEPATITIS C SCREENING 06/30/2015 PAP 2018 DTAP/TDAP/TD VACCINE (7 - Td or Tdap) 10/24/2019 10/23/2009, 09/29/2002, 11/07/1998, Additional history exists PHQ-2 (once per calendar year) 2024 COVID-19 VACCINE (1 - season) 2024 INFLUENZA VACCINE (#1) 2024 8, 12/14/2006, 03/19/2006 MATERNAL SCREENING DISCUSSION 11/16/2024 ZOSTER VACCINE (1 of 2) 06/30/2047 HEPATITIS B VACCINE Completed 01/09/1998, 1997, 1997 PNEUMOCOCCAL VACCINE: PEDIATRICS (0 to 5 YEARS) AND AT-RISK PATIENTS (6 to 49 YEARS) Aged Out 09/09/2000 No longer eligible based on patient's age to complete this topic HPV VACCINE Completed 09/24/2010, 04/22, 10/23/2009 MENINGITIS VACCINE Completed 08/30/2014 RSV VACCINE (No Doses Required) Completed Procedures Procedure Name Priority Date/Time Associated Diagnosis Comments EKG 12-LEAD COMPLETE W/READ - CLINICS Routine 12/26/2024 9:59 AM PULVERIZER TENDER Hyperemesis gravidarum related condition, antepartum LIPASE Routine 12/26/2024 9:08 AM PULVERIZER TENDER Cyclical vomiting Hyperemesis gravidarum related condition, antepartum AMYLASE Routine 12/26/2024 9:08 AM PULVERIZER TENDER Cyclical vomiting Hyperemesis gravidarum related condition, antepartum CBC WITH PLATELETS Routine 12/26/2024 9: 08 AM PULVERIZER TENDER Cyclical vomiting Hyperemesis gravidarum related condition, antepartum COMPREHENSIVE METABOLIC PANEL Routine 12/26/2024 9:08 AM PULVERIZER TENDER Cyclical vomiting Hyperemesis gravidarum related condition, antepartum MFM US OB COMPLETE 2/3 TRI SINGLE Routine 12/26/2024 8:52 AM PULVERIZER TENDER Hyperemesis gravidarum POTASSIUM (EXTERNAL RESULT) Routine 12/19/2024 1:10 PM CDT CREATININE (EXTERNAL RESULT) Routine 12/19/2024 1:10 PM CDT GLUCOSE (EXTERNAL RESULT) Routine 12/19/2024 1:10 PM CDT AST (EXTERNAL RESULT) Routine 12/19/2024 1:10 PM CDT ALT (EXTERNAL RESULT) Routine 12/19/2024 1:10 PM CDT LAB RESULT - HIM SCAN 12/19/2024 12:00 AM CDT from Last 3 Months Results * EKG 12-lead complete w/read - Clinics (12/26/2024 9:59 AM PULVERIZER TENDER) Systolic Blood Pressure mmHg RADIOLOGY RESULTS Diastolic Blood Pressure mmHg RADIOLOGY RESULTS Ventricular Rate 92 BPM RAD IOLOGY RESULTS Atrial Rate 92 BPM RADIOLOG Y RESULTS CO Interval 122 ms RADIOLOG Y RESULTS QRS Duration 66 ms RADIOLO GY RESULTS QT 342 ms RADIOLOGY RESULTS QTc 422 ms RADIOLOGY RESULTS P [place] 17 degrees RADIOLOGY RESULTS R AXIS -12 degrees RADIOLOGY RESULTS T [place] 13 degrees RADIOLOGY RESULTS Interpretation ECG Sinus rhythm Minimal voltage criteria for LVH, may be normal variant ( R in aVL ) Borderline ECG No previous ECGs available Confirmed by MD MÉNDEZ DAVID ([id number]) on 12/27/2024 2:24:21 PM RADIOLOGY RESULTS 12/26/2024 9:59 AM PULVERIZER TENDER 12/27/2024 2:24 PM PULVERIZER TENDER Fabiano Tena MD ECG ORDERABLES Edited Result - Final RADIOLOGY RESULTS * Lipase (12/26/2024 9:08 AM PULVERIZER TENDER) Pathologist [facility] Lipase 34 13 - 60 U/L 12/26/2024 9:38 AM PULVERIZER TENDER UR LABORATORY Comment:On 03/31/2022 the as say method at [facility] laboratory was changed to the [...] Unknown Venipuncture / Unknown 12/26/2024 9:08 AM PULVERIZER TENDER 12/26/2024 9:08 AM PULVERIZER TENDER us Fabiano Tena MD LAB - BLOOD ORDERABLES Final Result UR LABORATORY [facility] [address] [place] [address], [address] [place] [address] * (ABNORMAL) Comprehensive metabolic panel (12/26/2024 9:08 AM PULVERIZER TENDER) Sodium 133(L) 135 - 145 mmol/L 12/26/2024 9:38 AM PULVERIZER TENDER UR LABORATORY Potassium 3.5 3.4 - 5.3 mmol/L 12/26/2024 9:38 AM PULVERIZER TENDER UR LABORATORY Carbon Dioxide (CO2) 22 22 - 29 mmol/L 12/26/2024 9:38 AM PULVERIZER TENDER UR LABORATORY Anion Gap 13 7 - 15 mmol/L 12/26/2024 9:38 AM PULVERIZER TENDER UR LABORATORY Urea Nitrogen 5.6(L) 6.0 - 20.0 mg/dL 12/26/2024 9:38 AM PULVERIZER TENDER UR LABORATORY Creatinine 0.49(L) 0.51 - 0.95 mg/dL 12/26/2024 9:38 AM PULVERIZER TENDER UR LABORATORY GFR Estimate >90 >60 mL/min/1.7 3m2 12/26/2024 9:38 AM PULVERIZER TENDER UR LABORATORY Comment:eGFR calculated us2020 CKD-EPI equation. Calcium 8.8 8.8 - 10.4 mg/dL 12/26/2024 9:38 AM PULVERIZER TENDER UR LABORATORY Chloride 98 98 - 107 mmol/L 12/26/2024 9:38 AM PULVERIZER TENDER UR LABORATORY Glucose 84 70 - 99 mg/dL 12/26/2024 9:38 AM PULVERIZER TENDER UR LABORATORY Alkaline Phosphatase 77 40 - 150 U/L 12/26/2024 9:38 AM PULVERIZER TENDER UR LABORATORY AST 44 0 - 45 U/L 12/26/2024 9:38 AM PULVERIZER TENDER UR LABORATORY ALT 174(H) 0 - 50 U/L 12/26/2024 9:38 AM PULVERIZER TENDER UR LABORATORY Protein Total 6.6 6.4 - 8.3 g/dL 12/26/2024 9:38 AM PULVERIZER TENDER UR LABORATORY Albumin 3.4(L) 3.5 - 5.2 g/dL 12/26/2024 9:38 AM PULVERIZER TENDER UR LABORATORY Bilirubin Total 0.3 <=1.2 mg/dL 12/26/2024 9:38 AM PULVERIZER TENDER UR LABORATORY Blood STRUCTURE OF LEFT UPPER LIMB / Unknown Venipuncture / Unknown 12/26/2024 9:08 AM PULVERIZER TENDER 12/26/2024 9:08 AM PULVERIZER TENDER us Fabiano Tena MD LAB - BLOOD ORDERABLES Final Result UR LABORATORY [facility], Room [address] * Amylase (12/26/2024 9:08 AM PULVERIZER TENDER) Pathologist [facility] Amylase 84 28 - 100 U/L 12/26/2024 9:38 AM PULVERIZER TENDER UR LABORATORY Blood STRUCTURE OF LEFT UPPER LIMB / Unknown Venipuncture / Unknown 12/26/2024 9:08 AM PULVERIZER TENDER 12/26/2024 9:08 AM PULVERIZER TENDER us Fabiano Tena MD LAB - BLOOD ORDERABLES Final Result Performing Organization Address City/[facility] Co de Phone Number UR LABORATORY [facility] [address] [place] [address], [address] * CBC with Platelets (12/26/2024 9:08 AM PULVERIZER TENDER) WBC Count 10.60 4.00 - 11.00 10e3/uL 12/26/2024 9:21 AM PULVERIZER TENDER UR LABORATORY RBC Count 3.99 3.80 - 5.20 10e6/uL 12/26/2024 9:21 AM PULVERIZER TENDER UR LABORATORY Hemoglobin 11.7 11.7 - 15.7 g/dL 12/26/2024 9:21 AM PULVERIZER TENDER UR LABORATORY Hematocrit 35.0 35.0 - 47.0 % 12/26/2024 9:21 AM PULVERIZER TENDER UR LABORATORY MCV 87.7 78.0 - 100.0 fL 12/26/2024 9:21 AM PULVERIZER TENDER UR LABORATORY MCH 29.3 26.5 - 33.0 pg 12/26/2024 9:21 AM PULVERIZER TENDER UR LABORATORY MCHC 33.4 31.5 - 36.5 g/dL 12/26/2024 9:21 AM PULVERIZER TENDER UR LABORATORY RDW 12.6 10.0 - 15.0 % 12/26/2024 9:21 AM PULVERIZER TENDER UR LABORATORY Platelet Count 339 150 - 450 10e3/uL 12/26/2024 9:21 AM PULVERIZER TENDER UR LABORATORY Blood STRUCTURE OF LEFT UPPER LIMB / Unknown Venipuncture / Unknown 12/26/2024 9:08 AM PULVERIZER TENDER 12/26/2024 9:08 AM PULVERIZER TENDER us Fabiano Tena MD LAB - BLOOD ORDERABLES Final Result UR LABORATORY [facility] [address] [facility], [address] [place] [address], [facility] * MFM US OB Complete 2/3 Tri Single (12/26/2024 8:52 AM PULVERIZER TENDER) Anatomical Region Laterality Modality Ultrasound 12/26/2024 7:51 AM PULVERIZER TENDER Impressions 12/27/2024 9:01 AM PULVERIZER TENDER IMPRESSION ----- 1) Dillard intrauterine at 15w 5d gestational age. 2) None of the anomalies commonly detected by ultrasound were evident in the limited anatomic survey described above. 3) Growth parameters and estimated weight were consistent with an appropriate for gestation age pattern of growth. 4) The amniotic fluid volume appeared normal. Narrative 12/27/2024 9:01 AM PULVERIZER TENDER 2nd / 3rd Trim ----- Pat. Name: CIRO FRASER Study Date: 12/26/2024 7:51am Pat. NO: [id number] Referring MD: MEGHAN BROWN Site: Student Financial Aid Manager: Tricia Segundo RDMS : 1995 Age: 29 [...] 0 lb 4 oz EFW by Hadlock ([id number]) Head / Face / Neck Biometry: Associate Financial Analyst 6.0 mm CM 2.0 mm Nasal bone 3.3 mm ANATOMY ----- The following structures appear normal: Head / Neck Cranium. Head size. Head shape. Lateral ventricles. Choroid plexus. Midline falx. Cavum septi pellucidi. Cerebellum. Cisterna magna. Parenchyma. Thalami. Vermis. Neck. Nuchal fold. Face Lips. Profile. Nose. Maxilla. Mandible. Orbits. Lens. Heart / Thorax 4-chamber view. RVOT view. LVOT view. 3-vessel view. 8-zuirow-ieqfcrq view. Situs. Aortic arch view. Bicaval view. [...] Please see EPIC for details of Ciro' [facility] Consult. Recommend comprehensive US at 18-20 weeks at [facility]. Return to primary provider for continued care. Thank you for the opportunity to participate in the care of this patient. If you have questions regarding today's evaluation or if we can be of further service, please contact the Maternal- Medicine Center. anomalies may be present but not detected Procedure Note Fabiano Tena MD - 12/27/2024 / Trim ----- Pat. Name: CIRO FRASER Study Date: 12/26/2024 7:51am Pat. NO: [id number] Referring MD: MEGHAN BROWN Site: Student Financial Aid Manager: Tricia Segundo RDMS : 1995 Age: 29 [...] EFW (lb,oz) 0 lb 4oz EFW by Mohamudlock([id number]) Head / Face / Neck Biometry: Associate Financial Analyst 6.0mm CM 2.0mm Nasal bone 3.3mm ANATOMY ----- The following structures appear normal: Head / Neck Cranium. Head size. Head shape.Lateral ventricles. Choroid plexus. Midline falx. Cavum septi pellucidi.Cerebellum. Cisterna magna. Parenchyma. Thalami. Vermis. Neck. Nuchal fold. Face Lips. Profile. Nose. Maxilla.Mandible. Orbits. Lens. Heart / Thorax 4-chamber view. RVOT view. LVOT view.3-vessel view. 3-rptkhv-rrjmesb view. Situs. Aortic arch view. Bicavalview. Ductal [...] today's ultrasound with the patient. Please see [employer] for details of Ciro' [facility] Consult. Recommend comprehensive US at 18-20 weeks at [facility]. Return to primary provider for continued [...] volume appeared normal. us Tennille Salazar MD [facility] US ORDERABLES Edit ed Result - Final * (ABNORMAL) Potassium (External Result) (12/19/2024 1:10 PM CDT) Potassium (External) 3.0(A) 3.6 - 5.1 mmol/L [facility] Blood 12/19/2024 1:10 PM CDT [facility] - 12/19/2024 1:10 PM CDT [facility]- External Lab Results us Provider Outside LAB - HIM EXTERNAL RESULT Final Result Performing Organization Address [facility] Co de Phone Number [facility] [address] [place] [address], [facility] [phone] * (ABNORMAL) Glucose (External Result) (12/19/2024 1:10 PM CDT) Glucose (External) 109(A) 60 - 115 mg/dL [facility] Blood 12/19/2024 1:10 PM CDT [facility] - 12/19/2024 1:10 PM CDT [facility]- External Lab Results us Provider Outside LAB - [facility] EXTERNAL RESULT Final Result Performing Organization Address [facility] Phone Number [facility] [address] [place] [address], [facility] [phone] * Creatinine (External Result) (12/19/2024 1:10 PM CDT) Creatinine (External) 0.5 0.5 - 1.5 mg/dL [facility] Blood 12/19/2024 1:10 PM CDT [facility] - 12/19/2024 1:10 PM CDT [facility]- External Lab Results us Provider Outside LAB - HIM EXTERNAL RESULT Final Result Performing Organization Address [facility] de Phone Number [facility] [address] [place] [address], [facility] [phone] * (ABNORMAL) AST (External Result) (12/19/2024 1:10 PM CDT) AST (External) 178(A) 12 - 35 U/L [facility] Blood 12/19/2024 1:10 PM CDT [facility] - 12/19/2024 1:10 PM CDT [facility]- External Lab Results us Provider Outside LAB - HIM EXTERNAL RESULT Final Result [facility] [address] [place] [address], [facility] [phone] * (ABNORMAL) ALT (External Result) (12/19/2024 1:10 PM CDT) ALT (External) 370(A) 4 - 35 U/L [facility] Blood 12/19/2024 1:10 PM CDT Narrative [facility] - 12/19/2024 1:10 PM CDT [facility]- External Lab Results us Provider Outside LAB - HIM EXTERNAL RESULT Final Result Performing Organization Address [facility]/ZIP Co de Phone Number [facility] [address] [place] [address], [facility] [phone] * Lab Result - HIM Scan (12/19/2024 12:00 AM CDT) 12/19/2024 us Provider Outside [facility] NON-BEAKER LAB TESTING Final Result from Last 3 Months Insurance [facility] OUT OF STATE BCBS OUT OF STATE Care Teams Chief Service Dispatcher Relationship Specialty Start Date End Date No Ref-Primary, Physician PCP - General 12/18/24
--- OUTSIDE RECORDS SUMMARY | 2025-01-21 19:30 | XMS_ITS | Encounter Summary ---
Author Organization [place] Address [address] [place] [address]. [place] [address] Care Team Providers Care Ui Application Developer Name Role Phone No Ref-Primary, Physician Primary Care Provider Encounter Details Date Type Department Care Team (Late st Contact Info) Description 01/10/2025 Results Follow-Up [facility] M[facility] [address] [place] [address] Ioana Godinez, SUZANNE Social History Tobacco Use Types Packs/Day Years [...] on filedocumented in this encounter Care Teams Ui Application Developer Relationship Specialty Start Date End Date No Ref-Primary, Physician PCP - General 12/18/24 documented as of this encounter
--- OUTSIDE RECORDS SUMMARY | 2025-01-21 19:30 | XMS_ITS | Encounter Summary ---
Author Organization [place] Address [facility] [place] [address] Care Team Providers Care Psychiatric Nurse Name Role Phone No Ref-Primary, Physician Primary Care Provider Reason for Referral * Diagnostic Imaging Ultrasound (Routine) - Pending Review Specialty Diagnoses / Procedures Referred By Contac t Referred To Contact Radiology. Diagnoses Hyperemesis gravidarum Procedures MFM US OB Complete 2/3 Tri Single Tennille Salazar MD [address] [place] [address] Phone: tel: fax: Referral ID Status Reason Start Date Expiration Date V isits Requested Visits Authorized [id number] Pending Review 12/19/2024 12/19/2025 1 1 Encounter Details Date Type Department Care Team (Late st Contact Info) Description 12/19/2024 Orders Only [facility] Maternal Medicine [facility] [place] [address] [place] [address] Steff Ferrer RN Hyperemesis gravidarum (Primary Dx) Social History Tobacco Use Types [...] on file documented as of this encounter Results * MFM US OB Complete 2/ Tri Single (12/26/2024 8:52 AM BABY FORMULA MIXER) Anatomical Region Laterality Modality Ultrasound 12/26/2024 7:51 AM BABY FORMULA MIXER Impressions 12/27/2024 9:01 AM BABY FORMULA MIXER IMPRESSION ----- 1) Dillard intrauterine at 15w 5d gestational age. 2) None of the anomalies commonly detected by ultrasound were evident in the limited anatomic survey described above. 3) Growth parameters and estimated weight were consistent with an appropriate for gestation age pattern of growth. 4) The amniotic fluid volume appeared normal. Narrative 12/27/2024 9:01 AM BABY FORMULA MIXER / Trim ----- Pat. Name: CIRO FRASER Study Date: 12/26/2024 7:51am Pat. NO: [id number] Referring MD: MEGHAN BROWN Site: Electrician'S Assistant: Tricia Segundo RDMS : 1995 Age: 29 [...] 0 lb 4 oz EFW by Hadlock ([id number]) Head / Face / Neck Biometry: Visualizer 6.0 mm CM 2.0 mm Nasal bone 3.3 mm ANATOMY ----- The following structures appear normal: Head / Neck Cranium. Head size. Head shape. Lateral ventricles. Choroid plexus. Midline falx. Cavum septi pellucidi. Cerebellum. Cisterna magna. Parenchyma. Thalami. Vermis. Neck. Nuchal fold. Face Lips. Profile. Nose. Maxilla. Mandible. Orbits. Lens. Heart / Thorax 4-chamber view. RVOT view. LVOT view. 3-vessel view. 9-nkjstv-ktclxou view. Situs. Aortic arch view. Bicaval view. [...] Please see EPIC for details of Ciro' [facility] Consult. Recommend comprehensive US at 18-20 weeks at [facility]. Return to primary provider for continued care. Thank you for the opportunity to participate in the care of this patient. If you have questions regarding today's evaluation or if we can be of further service, please contact the Maternal- Medicine Center. anomalies may be present but not detected Procedure Note Fabiano Tena MD - 12/27/2024 Trim ----- Pat. Name: CIRO FRASER Study Date: 12/26/2024 7:51am Pat. NO: [id number] Referring MD: MAY STEPHANIE Site: Electrician'S Assistant: Tricia Segundo RDMS : 1995 Age: 29 [...] EFW (lb,oz) 0 lb 4oz EFW by Elizabeth([id number]) Head / Face / Neck Biometry: Visualizer 6.0mm CM 2.0mm Nasal bone 3.3mm ANATOMY ----- The following structures appear normal: Head / Neck Cranium. Head size. Head shape.Lateral ventricles. Choroid plexus. Midline falx. Cavum septi pellucidi.Cerebellum. Cisterna magna. Parenchyma. Thalami. Vermis. Neck. Nuchal fold. Face Lips. Profile. Nose. Maxilla.Mandible. Orbits. Lens. Heart / Thorax 4-chamber view. RVOT view. LVOT view.3-vessel view. 3-svkmly-xastsev view. Situs. Aortic arch view. Bicavalview. Ductal [...] today's ultrasound with the patient. Please see [facility] for details of Ciro' [facility] Consult. Recommend comprehensive US at 18-20 weeks at [facility]. Return to primary provider for continued [...] volume appeared normal. us Tennille Salazar MD [facility] US ORDERABLES Edit ed Result - Final documented in this encounter Visit Diagnoses Diagnosis Hyperemesis gravidarum- Primary Mild hyperemesis gravidarum, unspecified as to episode of care Hyperemesis gravidarum Mild hyperemesis gravidarum, unspecified as to episode of care documented in this encounter Care Teams Psychiatric Nurse Relationship Specialty Start Date End Date No Ref-Primary, Physician PCP - General 12/18/24 documented as of this encounter
--- OUTSIDE RECORDS SUMMARY | 2025-01-21 19:30 | XMS_ITS | Encounter Summary ---
Author Organization [place] Address [address] [place] [address] Care Team Providers Care Dairy Cattle Farm Manager Name Role Phone No Ref-Primary, Physician Primary Care Provider Encounter Details Date Type Department Care Team (Latest Contact Info) Description 12/26/2024 Travel Social History Tobacco Use Types Packs/Day Years [...] on filedocumented in this encounter Care Teams Dairy Cattle Farm Manager Relationship Specialty Start Date End Date No Ref-Primary, Physician PCP - General 12/18/24 documented as of this encounter
--- OUTSIDE RECORDS SUMMARY | 2025-01-21 19:30 | XMS_ITS | Encounter Summary ---
Author Organization [place] Address [facility]ly [facility] [place] [address] Care Team Providers Care Filter Changer Name Role Phone No Ref-Primary, Physician Primary Care Provider Reason for Visit * Reason Comments Ultrasound 2/3 Complete Consult Cyclic vomiting synd martinez, Hyperemesis gravidarum, PTSD, BMI>30, Elevated liver enzymes, Elevated BP without dx of HTN, Hyperlipidemia Encounter Details Date Type Department Care Team (Late st Contact Info) Description 12/20/2024 PRE VISIT [facility] [place] [address] [place] [address] Alfreda Nascimento, RN Ultrasound (2/3 Complete); Consult (Cyclic vomiting syndrome, Hyperemesis gravidarum, PTSD, BMI>30, Elevated liver enzymes, Elevated BP without dx of HTN, Hyperlipidemia) Social History Tobacco Use Types Packs/Day Years [...] on filedocumented in this encounter Care Teams Filter Changer Relationship Specialty Start Date End Date No Ref-Primary, Physician PCP - General 12/18/24 documented as of this encounter
--- OUTSIDE RECORDS SUMMARY | 2025-01-21 19:30 | XMS_ITS | Encounter Summary ---
Author Organization [place] Address [address] [place] [id number] Care Team Providers Care Allopathic Doctor Name Role Phone No Ref-Primary, Physician Primary Care Provider Encounter Details Date Type Department Care Team (Latest Contact Info) Description 12/25/2024 Travel Social History Tobacco Use Types Packs/Day [...] on filedocumented in this encounter Care Teams Allopathic Doctor Relationship Specialty Start Date End Date No Ref-Primary, Physician PCP - General 12/18/24 documented as of this encounter
--- OUTSIDE RECORDS SUMMARY | 2025-01-21 19:30 | XMS_ITS | Encounter Summary ---
Author Organization [place] Address [facility] [place] [address] Care Team Providers Care Riveter Portable Machine Name Role Phone No Ref-Primary, Physician Primary Care Provider Encounter Details Date Type Department Care Team (Late st Contact Info) Description 12/20/2024 Telephone [facility] [address] [place], [place] [id number] Alfreda Nascimento, RN Social History Tobacco Use Types Packs/Day Years [...] on file documented as of this encounter Miscellaneous Notes * Telephone Encounter - Alfreda Nascimento RN - 12/20/2024 9:42 AM CDT Pt called, verbal consent obtained to send MARCUS for [facility] records prior to pt visit with [facility] on 12/26/24. Pt gave email of [email or web address] [employer] sent to patient. Will wait for pt reply. Ptdenies further questions about upcoming appt. Alfreda Nascimento RN documented in this encounter Plan of Treatment Not on file documented as of this encounter Visit Diagnoses Not on filedocumented in this encounter Care Teams Riveter Portable Machine Relationship Specialty Start Date End Date No Ref-Primary, Physician PCP - General 12/18/24 documented as of this encounter
[2025-01-21 19:36] VITALS: BP 115/77; PULSE 104; RESP 16; TEMP 36.4; O2SAT 96; BMI 30.2
--- NOTE | 2025-01-21 19:49 | ED.GENADULT ---
HPI - General Adult General Date Seen: 01/21/25 Chief complaint: Nausea/Vomiting Stated complaint: 19 Weeks , Hyperemesis Time Seen by Provider: 01/21/25 19:48 History of Present Illness HPI narrative: 29-year-old female currently about 19 weeks (follows with [facility] for care), also with history of cyclic vomiting syndrome managed by [facility], presenting to the ER today with vomiting. She also has a past medical history of hyperlipidemia, abnormal LFTs, PTSD. Per medical record she was in the ER 12/08/24. At that time she had been having nausea and vomiting for couple of days. She had been using Zofran without relief. He was tachycardic but afebrile. She received a L of D5 half-normal saline as well as Toradol and Zofran. Labs showed a white count of 16, hemoglobin 12.5, platelet count 375. Sodium 132, potassium 3.3, chloride 104, bicarb 18, BUN 10, creatinine 0.5, glucose 172, total bilirubin 0.5. ALT 63, AST 34. Alk-phos of 80. She has had multiple recheck labs since then including 12/09, 12/14, 12/15, 12/19, 01/09. She has had abnormal LFTs with an ALT rising up to about 499 and then trending down to 122 on January 09. AST peaked at 178 and is now back down to 65. Bilirubin is remained normal throughout. Most recent obstetric visit was 12/25. According to the acid notes she had had stable nausea but no vomiting for about 10 days. She had stopped her omeprazole because she was doing better. She follows with maternal medicine. Per OB note from 01/19, LFTs were improving. Vomiting was improving. She reports that she has been doing well for the past few weeks but since Wednesday, 5 days ago she has had recurrence of nausea. For the past couple of days since she has really not had hardly anything to eat in very little p.o. fluid. She has been using her Zofran and Reglan home but they are just not very effective. She starting to feel a little bit weaker in dehydrated. She notes there urine volume is less and her urine concentration is darker. She is not having any diarrhea. No fever. No cough. She is not having any vaginal bleeding, fluid leakage, uterine cramping. Her most recent ultrasound was normal and the baby was growing appropriately. She feels that her symptoms are similar to her previous episodes of cyclic vomiting syndrome. Related Data Home Medications ?Medication ?Instructions ?Recorded ?Confirmed amitriptyline 25 mg tablet 25 - 50 mg PO QPM vomiting 09/27/24 12/25/24 [id number] 3 fatty no.1 27 cap PO DAILY 10/30/24 12/25/24 mg-1 mg-300 mg capsule Previous Rx's ?Medication ?Instructions ?Recorded ondansetron 4 mg disintegrating 8 mg (2 x 4 mg) PO Q8H #40 tabs 12/19/24 tablet metoclopramide HCl 10 mg tablet 5 mg (1/2 x 10 mg) PO Q6-8H nausea 01/01/25 (Reglan) and vomiting #120 tabs pyridoxine (vitamin B6) 25 mg 25 mg PO QID #40 tabs 01/01/25 tablet (Vitamin B-6) omeprazole 20 mg capsule,delayed 20 mg PO DAILY #90 caps 01/05/25 release meclizine 12.5 mg tablet 12.5 mg PO TID PRN motion sickness 01/19/25 #30 tabs sennosides 8.6 mg-docusate sodium 1 tab PO DAILY #30 tabs 01/19/25 50 mg tablet (Stool Softener-Laxative) Allergies Allergy/AdvReac Type Severity Reaction Status Date / Time No Known Drug Allergies Allergy Verified 12/25/24 08:27 [facility] Medical History (Updated 01/21/25 @ 21:34 by Skip Guzman MD) Posttraumatic stress disorder ?F43.10 - Post-traumatic stress disorder, unspecified (ICD-10) Hyperlipidemia ?E78.5 - Hyperlipidemia, unspecified (ICD-10) Cyclic vomiting syndrome ?R11.15 - Cyclical vomiting syndrome unrelated to migraine (ICD-10) Elevated liver enzymes ?R74.8 - Abnormal levels of other serum enzymes (ICD-10) Cyclical vomiting, in migraine, intractable ?G43.A1 - Cyclical vomiting, in migraine, intractable (ICD-10) Surgical History History of cholecystectomy ?Z90.49 - Acquired absence of other specified parts of digestive tract (ICD-10) Family History Other Cancer Social History (Updated 10/31/24 @ 17:39 by Melony Mruguia PA-C) Narrative: SOCIAL HISTORY: 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 Marital status: . Zoroastrianism/cultural needs: no. Chemical or radiation exposure: no. Pre- tobacco use: no. Pre- alcohol use: no. Current tobacco use: no. Current alcohol use: no. Recreational drug use: no. Dietary restrictions: no. Blood transfusion acceptable in an emergency: yes. PSYCHOSOCIAL HISTORY: History of depression or currently depressed: Denies. Current or past physical, emotional, or sexual mistreatment: denies. Problems that will make it hard to make it to appointments: Denies. What is your current living situation?: I presently have a place to live Problems where you live: no known problems In the past 12 months, utilities in danger of being shut off: no In past 12 months, lack of transportation kept you from medical appts, meetings, work, or getting things needed for daily living: no In the past 12 mos, have been you worried that your food would run out before you had money to buy more?: never true In the past 12 mos, the food you bought just didn't last and you didn't have money to buy more?: never true Smoking Status: Never smoker How often do you have a drink containing alcohol: never AUDIT-C Alcohol total score: 0 Non-prescribed substance use: denies use How often does anyone, including family, friends and others, physically hurt you: never How often does anyone, including family, friends and others, insult or talk down to you: never How often does anyone, including family, friends and others, threaten you with harm: never How often does anyone, including family, friends and others, scream or curse at you: never Exam Narrative: Exam Narrative: Constitutional: Appears well-developed and well-nourished. Alert. Conversant. Non toxic. HENT: Head: Atraumatic. Nose: Nose normal. Mouth/Throat: Oral mucosa is clear are dry but not desiccated or cracked. no trismus. Pharynx normal. Tonsils symmetric. No tonsillar enlargement, erythema, or exudate. Eyes: Conjunctivae normal. EOM normal. Pupils equal, round, and reactive to light. No scleral icterus. Neck: Normal range of motion. Neck supple. No tracheal deviation present. Cardiovascular: Normal rate, regular rhythm. No gallop. No friction rub. No murmur heard. Symmetric radial artery pulses Pulmonary/Chest: Effort normal. No stridor. No respiratory distress. No wheezes. No rales. No rhonchi . No tenderness. Abdominal: Soft. Bowel sounds normal. No distension. Nontender uterus palpable with fundus just below the umbilical consistent with dates.. No tenderness. No rebound. No guarding. No Flanagan sign. She is status post cholecystectomy. No CVA tenderness Musculoskeletal: RUE: Normal range of motion. No tenderness. No deformity LUE: Normal range of motion. No tenderness. No deformity RLE: Normal range of motion. No edema. No tenderness. No deformity LLE: Normal range of motion. No edema. No tenderness. No deformity Neurological: Alert and oriented to person, place, and time. Normal strength. CN II-VII intact. No sensory deficit. GCS eye subscore is 4. GCS verbal subscore is 5. GCS motor subscore is 6. Normal coordination Skin: Skin is warm and dry. No rash noted. No pallor. Normal capillary refill. Psychiatric: Normal mood. Normal affect. Const: Vital Signs, click to edit/add: Vital Signs - 24 hr 01/21/25 19:36 Temperature 97.5 F L Pulse Rate [Pulse Oximeter] 104 H Respiratory Rate 16 Blood Pressure [Ri ght Upper Arm] 115/77 Pulse Oximetry 96 Oxygen Delivery Me thod Room Air Course Course ED Course: Recheck, doing okay after Reglan. Not nauseous but does not want to drink right now. IV fluids infusing. Labs back and LFTs are mildly abnormal. Patient reports that she has a well-established history of this, where she apparently develops abnormal LFTs during her spirits of nausea. She describes an extensive evaluation through [facility]. She is status post cholecystectomy. She has had EGD, ERCP colonoscopy, and other evaluations and it sounds like her GI team does not know why her LFTs go up. They tender eyes well she is sick and then gradually improved after she gets better. Other labs show white count minimally elevated at 11.04. Hemoglobin mildly anemic at 11.6 which is down by less than a g from prior. She has no recent black or bloody stools. She does have mild hyponatremia with sodium 132. Fortunately potassium, other electrolytes, kidney function, blood sugar are normal. Patient is endorsing that her nausea and vomiting for the past several days follows her pattern of cyclic vomiting and she mostly came here to the ER today to get IV fluids before she gets weaker and in more serious condition. We discussed further workup. She and her are comfortable deferring that for now. She is not having any lower abdominal pain, uterine cramping, or other symptoms of miscarriage, ectopic, pre term labor or obstetric complication. I would advise close outpatient follow-up with her OB team. Also discussed with OB team potential options for arranging an outpatient IV infusion for episodes when she needs it from vomiting. She agrees to do so. Vital Signs Vital signs: Initial Vital Signs Temperature 97.5 F L 01/21/25 19:36 Temperature Source Temporal Artery Scan 01/21/25 19:36 Pulse Rate 104 H 01/21/25 19:36 Respiratory Rate 16 01/21/25 19:36 Blood Pressure 115/77 01/21/25 19:36 Blood Pressure Mean 89 01/21/25 19:36 Blood Pressure Position Sitting 01/21/25 19:36 Pulse Oximetry 96 01/21/25 19:36 Oxygen Delivery Method Room Air 01/21/25 19:36 Vital Signs Temperature 97.5 F L 01/21/25 19:36 Pulse Rate 104 H 01/21/25 19:36 Respiratory Rate 16 01/21/25 19:36 Blood Pressure 115/77 01/21/25 19:36 Pulse Oximetry 96 01/21/25 19:36 Oxygen Delivery Method Room Air 01/21/25 19:36 Temperature 97.5 F L 01/21/25 19:36 Pulse Rate 104 H 01/21/25 19:36 Respiratory Rate 16 01/21/25 19:36 Blood Pressure 115/77 01/21/25 19:36 Pulse Oximetry 96 01/21/25 19:36 Oxygen Delivery Method Room Air 01/21/25 19:36 Medications Administered Medications: Generic Name Dose Route Start Last Admin Trade Name Freq PRN Reason Stop Dose Admin Dextrose/Sodium Chloride 1,000 mls @ 1,000 mls/hr 01/21/25 20:10 01/21/25 21:01 5 % Dextrose/0.9% Sod Chloride IV 1,000 mls/hr .Q1H EVELIN Administration Metoclopramide HCl 10 mg 01/21/25 20:07 01/21/25 21:00 Metoclopramide Hcl 5 Mg/Ml Inj IVP 01/21/25 20:08 10 mg ONCE ONE Administration Medical Decision Making Lab Data Labs: Lab Results 01/21/25 Range/Units 20:29 WBC 11.04 H (4.50-11.00) K/uL RBC 3.94 L (4.00-5.20) m/uL Hgb 11.6 L (12.0-16.0) gm/dL Hct 34.5 (33.0-51.0) % MCV 88 (80-100) fL MCH 29 (26-34) pg MCHC 34 (32-36) gm/dL RDW Coeff of Sandy 12.6 (11.5-15.5) % Plt Count 424 (140-440) K/uL Neut % (Auto) 75.1 H (42.0-72.0) % Lymph % (Auto) 17.8 L (20-44) % [place] % (Auto) 6.3 (0.0-11.0) % Eos % (Auto) 0.4 (0.0-7.0) % Baso % (Auto) 0.3 (0.0-3.0) % Neut # (Auto) 8.30 H (1.7-7.0) K/uL Lymph # (Auto) 2.00 (0.90-2.90) K/uL [place] # (Auto) 0.70 (0.00-0.90) K/UL Eos # (Auto) 0.00 (0.00-0.50) K/uL Baso # (Auto) 0.00 (0.00-0.30) K/uL Abs Immat Gran (auto) 0.00 (0.00-0.30) K/uL Imm/Tot Granulo (auto) 0.1 % Sodium 132 L (135-149) mmol/L Potassium 3.7 (3.6-5.1) mmol/L Chloride 97 (96-114) mmol/L Carbon Dioxide 24 (20-32) mmol/L Anion Gap 11 (7-15) mEq/L BUN 5 (5-24) mg/dL Creatinine 0.5 (0.5-1.5) mg/dL Estimated Creat Clear 127.53 Estimated GFR 132 ml/min Glucose 80 (60-115) mg/dL Calcium 9.2 (8.4-10.6) mg/dL Total Bilirubin 1.2 (0.1-1.5) mg/dL AST 130 H (12-35) U/L ALT 196 H (4-35) U/L Alkaline Phosphatase 69 (40-150) U/L Total Protein 7.4 (6.0-8.3) g/dL Albumin 3.9 (3.3-5.0) g/dL Discharge Plan Discharge Clinical Impression: Nausea & vomiting, Acute dehydration, Abnormal LFTs Patient Disposition: Home, Self-Care Condition: Stable Instructions: Dehydration (ED), Acute Nausea and Vomiting (DC) Additional Instructions: As we discussed, please come back to the ER right away if you have any problems especially worsening or uncontrolled vomiting, dehydration weakness, or if you develop new symptoms such as fever, jaundice, lower abdominal pain or uterine cramping, vaginal bleeding. Please recheck with your OB team this week for re-evaluation. Prescriptions: No Action ondansetron 4 mg tablet,disintegrating 8 mg PO Q8H Qty: 40 1RF amitriptyline 25 mg tablet 25 - 50 mg PO QPM [id number] 3 fatty no.1 27-1-300 mg capsule PO DAILY pyridoxine (vitamin B6) [Vitamin B-6] 25 mg tablet 25 mg PO QID Qty: 40 2RF metoclopramide HCl [Reglan] 10 mg tablet 5 mg PO Q6-8H Qty: 120 2RF omeprazole 20 mg capsule,delayed release(DR/EC) 20 mg PO DAILY Qty: 90 0RF meclizine 12.5 mg tablet 12.5 mg PO TID PRN (Reason: motion sickness) Qty: 30 2RF sennosides-docusate sodium [Stool Softener-Laxative] 8.6-50 mg tablet 1 tab PO DAILY Qty: 30 1RF Follow Up/Referrals: Provider,Not a Local [Primary Care Provider, Family Practice] Stand Alone Forms: MyHealth Info Instructions
[2025-01-21 20:42] LABS: Hematocrit* 34.5 % (33.0-51.0); Hemoglobin* 11.6 gm/dL (12.0-16.0); Immature Granulocytes Pct Auto 0.1 %; Mean Corpuscular HGB Conc 34 gm/dL (32-36); Mean Corpuscular Hemoglobin 29 pg (26-34); Mean Corpuscular Volume 88 fL (80-100); RDW Coefficient of Variation % 12.6 % (11.5-15.5); Red Blood Count* 3.94 m/uL (4.00-5.20); White Blood Count* 11.04 K/uL (4.50-11.00)
[2025-01-21 20:45] LABS: Immature Granulocytes Abs Auto 0.00 K/uL (0.00-0.30); Lymphocytes Absolute Auto 2.00 K/uL (0.90-2.90); Slide Review Reflex No
[2025-01-21 20:55] LABS: Albumin* 3.9 g/dL (3.3-5.0); Chloride* 97 mmol/L (96-114); Sodium* 132 mmol/L (135-149)
[2025-01-21 20:56] LABS: Potassium* 3.7 mmol/L (3.6-5.1)
[2025-01-21 20:58] LABS: Alanine Aminotransferase* 196 U/L (4-35); Alkaline Phosphatase* 69 U/L (40-150); Anion Gap 11 mEq/L (7-15); Aspartate Amino Transferase* 130 U/L (12-35); Bilirubin Total* 1.2 mg/dL (0.1-1.5); Blood Urea Nitrogen* 5 mg/dL (5-24); Carbon Dioxide* 24 mmol/L (20-32); Creatinine* 0.5 mg/dL (0.5-1.5); Est. Creatinine Clearance* 127.53; Estimated Glomerular Filt Rate 132 ml/min
[2025-01-21 20:59] LABS: Calcium* 9.2 mg/dL (8.4-10.6); Glucose* 80 mg/dL (60-115); Total Protein* 7.4 g/dL (6.0-8.3)
[2025-01-21] MEDS: METOCLOPRAMIDE HCL 5 MG/ML INJ 10 MG IVP (21:00)
[2025-01-21] MEDS: 5 % DEXTROSE/0.9% SOD CHLORIDE 1,000 ML 1000 ML IV (21:01)
== END 2025-01-21 21:48 | disposition home or self-care (01) ==
PROVIDERS: Emergency Provider Emergency Medicine
DX: R11.2 Nausea with vomiting, unspecified (principal); E86.0 Dehydration; R94.5 Abnormal results of liver function studies; Z3A.19 19 weeks gestation of pregnancy
CPT/HCPCS: 36415; 80053; 85025; 96374; 99283; 99284; J2765; J7042

== ENCOUNTER 2025-01-24 07:35 | Outpatient (CLI) | payer BC, SELFPAY | END 2025-01-24 07:36 | disposition home or self-care (01) | LOC: US 07:36 | PROVIDERS: Visit Provider Advanced Practice Midwife | DX: O10.912 Unspecified pre-existing hypertension complicating pregnancy, second trimester (principal); O26.892 Other specified pregnancy related conditions, second trimester; R74.8 Abnormal levels of other serum enzymes; R11.15 Cyclical vomiting syndrome unrelated to migraine; Z3A.19 19 weeks gestation of pregnancy | CPT/HCPCS: 76811 ==

== ENCOUNTER 2025-01-25 15:26 | Outpatient (CLI) | payer BC, SELFPAY ==
--- NOTE | 2025-02-07 07:51 | ONC.NURNOTE ---
Diagnosis: Hyperemesis and cyclic vomiting syndrome.
== END 2025-01-25 15:27 | disposition home or self-care (01) ==
LOC: NFLDREF 02-01 01:59
PROVIDERS: Visit Provider Advanced Practice Midwife
DX: Z34.92 Encounter for supervision of normal pregnancy, unspecified, second trimester (principal); R74.8 Abnormal levels of other serum enzymes
CPT/HCPCS: 84450; 84460

== ENCOUNTER 2025-02-13 14:13 | Outpatient (CLI) | payer BC, SELFPAY | END 2025-02-13 14:14 | disposition home or self-care (01) | PROVIDERS: Visit Provider Advanced Practice Midwife | DX: Z34.92 Encounter for supervision of normal pregnancy, unspecified, second trimester (principal); R11.15 Cyclical vomiting syndrome unrelated to migraine; E87.6 Hypokalemia; R74.8 Abnormal levels of other serum enzymes | CPT/HCPCS: 80053 ==